=== PATIENT | male | born 1940 ===

== ENCOUNTER → 2021-05-27 13:55 | Outpatient (BNVA) | payer OTHER, SELFPAY | PROVIDERS: PCP Internal Medicine; Visit Provider Psychiatry & Neurology Neurology | DX: G20 Parkinson's disease (principal); Z79.899 Other long term (current) drug therapy | CPT/HCPCS: 99212 ==

== ENCOUNTER → 2021-07-10 14:24 | Outpatient (BNVA) | payer OTHER, SELFPAY | PROVIDERS: PCP Internal Medicine; Visit Provider Psychiatry & Neurology Neurology | DX: G20 Parkinson's disease (principal) | CPT/HCPCS: 99212 ==

== ENCOUNTER → 2021-08-15 14:56 | Outpatient (BNVA) | payer OTHER, SELFPAY | PROVIDERS: PCP Internal Medicine; Visit Provider Psychiatry & Neurology Neurology | DX: G20 Parkinson's disease (principal) | CPT/HCPCS: 99212 ==

== ENCOUNTER → 2022-04-28 13:48 | Outpatient (BNVA) | payer OTHER, SELFPAY | PROVIDERS: PCP Internal Medicine; Visit Provider Psychiatry & Neurology Neurology | DX: G20 Parkinson's disease (principal) ==

== ENCOUNTER → 2022-05-13 13:05 | Outpatient (BNVA) | payer OTHER, SELFPAY | PROVIDERS: PCP Internal Medicine; Visit Provider Psychiatry & Neurology Neurology | DX: G20 Parkinson's disease (principal) | CPT/HCPCS: 99212 ==

== ENCOUNTER → 2022-06-26 13:27 | Outpatient (BNVA) | payer OTHER, SELFPAY | PROVIDERS: PCP Internal Medicine; Visit Provider Psychiatry & Neurology Neurology | DX: G20 Parkinson's disease (principal) | CPT/HCPCS: 99212 ==

== ENCOUNTER 2023-09-07 14:35 | Outpatient (AMB) | payer OTHER, SELFPAY ==
--- NOTE | 2023-09-07 14:37 | A.OFFVIS_ITS ---
Vital Signs 09/07/23 14:39 Height 5 ft 7 in Weight 174 lb 5 oz BMI 27.3 BP 112/68 Blood Pressure Location Rt brachial Position Sitting Respiration 16 Pulse 88 Pulse Source Pulse Oximeter Pulse Oximetry (%) 98 Oxygen Delivery Method Room Air Intake Visit Reasons: Follow up/ Conf w/address Intake Note: Pt presents to the office for a 3 month follow up for Parkinson's. Early Years Teacher Required: Yes Early Years Teacher Name: Celeste Uribe CMA Allergies atorvastatin [From Lipitor] Allergy (Verified 09/07/23 14:39) Abdominal Pain Medication List - Last Reconciled 09/07/23 by Alissa Downs MD albuterol sulfate 90 mcg/actuation puffs inhalation Q4H allopurinol 100 mg PO DAILY azelastine intranasal BID carbidopa-levodopa 25-100 mg ER 1 tab PO TID cephalexin 500 mg PO TID chlorthalidone 25 mg PO DAILY cholecalciferol (vitamin D3) 50 mcg PO DAILY hydroxyzine HCl 10 mg PO TID PRN mirtazapine 15 mg PO BEDTIME omeprazole 20 mg PO DAILY 30 days pantoprazole (Protonix) 20 mg PO DAILY polyethylene glycol 3350 (Gavilax) grams PO pravastatin 40 mg PO DAILY ropinirole 0.5 mg PO TID tamsulosin 0.4 mg PO BEDTIME HPI Comments Details: 83-year-old male comes for follow-up of Parkinson's disease after 18 mths. He reports worsening of his symptoms, increased tremors , gait difficulty , freezing episodes.He is on antibiotics for UTI. Currently he is on requip 0.5mg tid and , sinemet 25/100 tid.He did not notice any improvement. He reports that medications do not help with his symptoms and he still has lot of tremors and difficulty walking . He has dizziness but no falls. He denies any hallucinations or REM behaviors. He denies any diplopia or vertigo. He always hears a chronic gastric problem and he follows up with the GI. [facility] Medical History (Updated 09/07/23 @ 15:04 by Alissa Downs MD) Parkinson's disease with fluctuating manifestations Cataract Parkinson's disease Irritable bowel syndrome Chronic kidney disease Diverticulitis Back pain Arthritis COPD (chronic obstructive pulmonary disease) Hyperlipidemia HTN (hypertension) BPH (benign prostatic hyperplasia) Surgical History Hx of parathyroidectomy History of back surgery Hx of neck surgery History of carpal tunnel release Hx of appendectomy Family History Father Stroke Mother HTN (hypertension) Diabetes Social History Alcohol intake: never Patient Tobacco Use Status: Never used Tobacco Physical Exam Vital Signs: Last Vital Signs Pulse 88 09/07/23 14:39 Resp 16 09/07/23 14:39 BP 112/68 09/07/23 14:39 Pulse Ox 98 09/07/23 14:39 Oxygen Delivery Method Room Air 09/07/23 14:39 BMI result Body Mass Index 27.3 Const General: cooperative and healthy appearing Orientation/consciousness: patient oriented x3 HEENT Head: Yes normal to inspection Neck Other: mild antecollis and restricted range of motion Neuro Other: Moderate decreased blink and facial expression slow tongue movements Voice- hypophonia and dysprosody Right UE moderate amplitude rest tremors Fine Finger movements - moderate decreased manish R>L Alternating hand movements - decreased manish R>L Hand movements - decreased manish Foot taps- decreased manish Manish cog wheel rigidity gait - stooped, slowness and decreased arm swing R>L General: patient oriented x3 Motor exam (neuro): 5/5 motor strength present throughout and Normal motor muscle tone present throughout Coordination: [id number] test normal Assessment & Plan Assessment & Plan (1) Parkinson's disease with fluctuating manifestations: Code(s): G20.A2 - Parkinson's disease without dyskinesia, with fluctuations Category: Medical Plan Increase ropinirole 0.5 mg qid and sinemet Cr 25/100 qid Increase fluids Increase exercise. Medications: Changed From carbidopa-levodopa 25-100 mg ER 1 tab PO TID 90 tabs 6RF To carbidopa-levodopa 25-100 mg ER 1 tab PO QID 120 tabs 6RF Refilled ropinirole 0.5 mg PO TID 120 tabs 6RF Discontinued rasagiline Discontinued Reason: Patient no longer taking 1 mg PO DAILY 90 tabs 2RF Coding Level of Care Code Est Pt Level 4 (86099) Complex EM visit Add On G2211 Diagnoses Parkinson's disease with fluctuating manifestations G20.A2
[2023-09-07 14:39] VITALS: BP 112/68; PULSE 88; RESP 16; O2SAT 98; BMI 27.3
== END 2023-09-07 15:13 | disposition home or self-care (01) ==
PROVIDERS: PCP Internal Medicine; Visit Provider Psychiatry & Neurology Neurology
DX: G20.A2 Parkinson's disease without dyskinesia, with fluctuations (principal)
CPT/HCPCS: 99214; G2211

== ENCOUNTER → 2023-09-07 14:35 | Outpatient (BNVA) | payer OTHER, SELFPAY | PROVIDERS: PCP Internal Medicine; Visit Provider Psychiatry & Neurology Neurology | DX: G20.A2 Parkinson's disease without dyskinesia, with fluctuations (principal) | CPT/HCPCS: 99212 ==

== ENCOUNTER 2024-07-14 13:50 | Outpatient (AMB) | payer OTHER, SELFPAY ==
[2024-07-14 13:48] VITALS: BP 112/64; PULSE 96; O2SAT 97; BMI 27.0
--- NOTE | 2024-07-14 13:48 | A.OFFVIS_ITS ---
Vital Signs 07/14/24 13:48 Height 5 ft 7 in Weight 172 lb 6 oz BMI 27.0 BP 112/64 Blood Pressure Location Lt brachial Position Sitting Pulse 96 Pulse Source Pulse Oximeter Pulse Oximetry (%) 97 Oxygen Delivery Method Room Air Intake Visit Reasons: Follow up-Conf Intake Note: Patient following up med adjustment ropinirole Accompanied by: neighbor Allergies atorvastatin [From Lipitor] Allergy (Verified 07/14/24 13:48) Abdominal Pain Medication List - Last Reconciled 07/14/24 by Alissa Downs MD albuterol sulfate 90 mcg/actuation puffs inhalation Q4H allopurinol 100 mg PO DAILY azelastine intranasal BID carbidopa-levodopa 25-100 mg ER 1 tab PO QID cephalexin 500 mg PO TID chlorthalidone 25 mg PO DAILY cholecalciferol (vitamin D3) 50 mcg PO DAILY hydroxyzine HCl 10 mg PO TID PRN mirtazapine 15 mg PO BEDTIME omeprazole 20 mg PO DAILY 30 days pantoprazole (Protonix) 20 mg PO DAILY polyethylene glycol 3350 (Gavilax) grams PO pravastatin 40 mg PO DAILY ropinirole 0.5 mg PO QID tamsulosin 0.4 mg PO BEDTIME HPI Comments Details: 84-year-old male comes for follow-up of Parkinson's disease after 1 year . He reports worsening of his symptoms, increased tremors , gait difficulty , freezing episodes. Currently he is on requip 0.5mg tid and , sinemet 25/100 tid.He did not increase to 4 times a day as suggested during his last visit He reports that medications do not help with his symptoms and he still has lot of tremors and difficulty walking . He has dizziness but no falls. He denies any hallucinations or REM behaviors. He denies any diplopia or vertigo. . [facility] Medical History Parkinson's disease with fluctuating manifestations Cataract Parkinson's disease Irritable bowel syndrome Chronic kidney disease Diverticulitis Back pain Arthritis COPD (chronic obstructive pulmonary disease) Hyperlipidemia HTN (hypertension) BPH (benign prostatic hyperplasia) Surgical History Hx of parathyroidectomy History of back surgery Hx of neck surgery History of carpal tunnel release Hx of appendectomy Family History Father Stroke Mother HTN (hypertension) Diabetes Social History Alcohol intake: never Patient Tobacco Use Status: Never used Tobacco Physical Exam Vital Signs: Last Vital Signs Pulse 96 07/14/24 13:48 BP 112/64 07/14/24 13:48 Pulse Ox 97 07/14/24 13:48 Oxygen Delivery Method Room Air 07/14/24 13:48 BMI result Body Mass Index 27.0 Const General: cooperative and healthy appearing Orientation/consciousness: patient oriented x3 HEENT Head: Yes normal to inspection Neck Other: mild antecollis and restricted range of motion Neuro Other: Moderate decreased blink and facial expression slow tongue movements Voice- hypophonia and dysprosody Right UE moderate amplitude rest tremors Fine Finger movements - moderate decreased manish R>L Alternating hand movements - decreased manish R>L Hand movements - decreased manish Foot taps- decreased manish Manish cog wheel rigidity gait - stooped, slowness and decreased arm swing R>L, freezing episodes General: patient oriented x3 Motor exam (neuro): 5/5 motor strength present throughout Coordination: [id number] test normal Assessment & Plan Assessment & Plan (1) Parkinson's disease with fluctuating manifestations: Code(s): G20.A2 - Parkinson's disease without dyskinesia, with fluctuations Category: Medical Qualifiers: Dyskinesia presence: without dyskinesia Qualified Code(s): G20.A2 - Parkinson's disease without dyskinesia, with fluctuations Plan Increase ropinirole 0.5 mg qid and sinemet Cr 25/100 qid Increase fluids PT for gait training and balance Increase exercise. Orders: Orders PT Evaluation and Treatment Today G20.A2 - Parkinson's disease without dyskinesia, with fluctuations Medications: New 2 carbidopa-levodopa 25-100 mg ER 1 tab PO QID 120 tabs 6RF Changed From ropinirole 0.5 mg PO TID 120 tabs 6RF To ropinirole 0.5 mg PO QID 120 tabs 6RF Discontinued carbidopa-levodopa 25-100 mg ER Discontinued Reason: Doctor's Order 1 tab PO QID 120 tabs 6RF Coding Level of Care Code Est Pt Level 4 (69978) Complex EM visit Add On G2211 Diagnoses Parkinson's disease without dyskinesia, with fluctuating manifestations G20.A2 Dyskinesia presence: without dyskinesia
--- OUTSIDE RECORDS SUMMARY | 2024-07-14 16:55 | XMS_ITS | Data Portability ---
Author Organization [employer], Id in - [facility] Address [address] [place] [address] Care Team Providers Care Stitch Separator Name Role Phone HIM CCA OTHER RAFAEL BRIGHT Primary Care Provider Assessment Encounter Date Assessment Date Assessment LastModified by Organization Details LastModified Time 02/02/2023 02/02/2023 Mr. Kurt Oreilly is an 82yoM w/ a PmHx of gout, COPD who is seen today for leg pain and chest discomfort. Mr. Oreilly reports that for the past few days he has had new bilateral lower extremity leg swelling and right knee pain. He notes that this is in addition to new intermittent chest pain that he has had over the past two weeks. He reports that the pain is pressure like and provoked by exertion. He does not have pain at rest or currently during today's visit. He denies new shortness of breath, nausea/vomiting, or trauma. He has an upcoming cardiology appointment on Thursday and a scheduled stress test. VSS. Skylights Assembler on site reports b/l mild lower extremity pitting edema, No knee erythema or asymmetry. POC EKG without ST changes. Labs with a potassium of 4.7 but otherwise unrevealing. Given b/l edema will treat as mild CHF exacerbation. Given 20mg IV lasix. No significant asymmetry to suggest acute gout exacerbation but encouraged to continue utilizing OTC medications. His chest pain is concerning for angina, but no pain currently and no EKG changes with upcoming cardiology appointment this week. He should present to the ED if chest pain worsens or does not improve immediately with rest. Primary team, Mr. Oreilly would benefit from follow up in the next week or so to make sure his leg pain has not worsened. [email or web address] Not available 02/02/2023 10:55:44 07/15/2023 07/15/2023 As noted, we were called to see this patient regarding concerns of cough, body aches 83 yo M COPD/asthma, CKD, elevated cholesterol, gout, lives with his , having 2 weeks of sxs including cough, body aches, lethargy, diminished appetite, pressure behind eyes, nose, nasal congestion, chills. Taking tylenol only. Last dose last night. No n/v/d. No abd pain. No known sick contacts. No use of oxygen. Evaluation in the field was performed by my account manager colleague, as noted above, I provided real-time direction and supervision for this visit. The medic evaluation revealed in nad mmm; erythematous op neck supple tenderness over maxillary sinuses bilaterally lungs clear rrr abd soft, nd, nt Impression: Cough URI Fever Possible source is a sinusitis. May be bacterial given duration of sxs and sinus tenderness and fever Lower clinical suspicion for PNA Plan: Augmentin bid x 7d Flonase nasal spray Salt water nasal spray Tessalon perles Tylenol prn fever and aches Red flag s/s reviewed with patient Primary care, consider CXR if cough worsens or not improving with above treatments Disposition: We discussed the diagnostic uncertainty of home visits and the risk associated with this. In this case, the patient and I felt this to be an acceptable and reasonable amount of risk given the benefit of avoiding an ED visit. We discussed the need to seek care urgently/emergen tly in the setting of any new or worsening serious symptoms, particularly breathing issues, worsening symptoms such as cough, ongoing fever despite use of tylenol, other concerns. [email or web address] Not available 07/15/2023 12:03:08 01/12/2024 01/12/2024 I have reviewed and agree with the assessment and plan as documented by the account manager. I provided real time medical direction for this encounter and was immediately available to provide additional phone based assistance as needed. History as noted by account manager. Pt with history of HTN, CKD, dementia, and gout reporting 2 weeks of diffuse myalgias, as well as non productive cough and rhinorrhea. No fevers, chills, chest or abdominal pain. No vomiting or diarrhea. No joint pain or swelling. Pt reports chronic edema of legs but notes that this is actually improved recently. On exam, pt appears uncomfortable but not in distress. Vitals normal. Lungs clear, abdomen soft, non tender. No joint swelling or redness. No facial swelling or redness. 1+ pitting symmetric edema of BLEs. POC BMP is unremarkable with Cr 1.2 (was 1.4 in July 2023) and normal H/H. Lactate normal and AG 12. Rapid covid and flu both negative. 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 No fevers. On exam, he appears mildly uncomfortable but not in distress. Vitals normal. Lung and abdominal exam normal. No joint inflammation noted. 1+ symmetric peripheral edema noted that the pt reports is recently improved. POC covid and flu negative. POC labs also reassuring Etiology of pt's symptoms likely related to recent viral URI but seems odd for him to have had symptoms x2 weeks. His vitals, exam and labs are reassuring. Pt medicated with toradol 15mg IM. He and family told that he needs to try taking his tylenol tid prn symptoms and that he needs to call and make an appointment with his primary care team for further evaluation, including CBC to assess WBC and CK. To primary care team: Please call patient and family in next 1-2 days to check on his symptoms and to arrange for a close follow up appointment for further evaluation. Pt and family instructed to seek medical attention right away with any worsening or new symptoms, which are reviewed with them. [email or web address] Not available 01/12/2024 12:19:37 Plan of Treatment Reminders Order Date Submit Date Provider Last Modified By Organization Details Last Modified Time Details Appointments None recorded. Lab rapid SARS CoV 2 Ag, QL IA, respiratory specimen 2023 [email or web address] [facility], [address] [place] [address], [id number] 4 11:37:24 rapid flu (A+B) 2023 [email or web address] [facility], [address] [place] [address], [id number] 4 11:37:24 BMP, serum or plasma 2023 btils [facility], [address] [place] [address], [id number] 4 11:48:10 hemoglobin + hematocrit, blood 2023 btils [facility], [address] [place] [address], [id number] 4 11:48:10 hemoglobin + hematocrit, blood 2023 [email or web address] [facility], [address] [place] [address], [id number] 4 11:55:10 BMP, serum or plasma 2023 [email or web address] [facility], [address] [place] [address], [id number] 4 11:55:53 rapid SARS CoV 2 Ag, QL IA, respiratory specimen 2023 [email or web address] [facility], [address] [place] [address], [id number] 11:36:49 rapid flu (A+B) 2023 [email or web address] [facility], [address] [place] [address], [id number] 11:37:03 rapid strep group A, throat 2023 [email or web address] [facility], [address] [place] [address], [id number] 11:36:56 Referral None recorded. Procedures None recorded. Surgeries None recorded. Imaging None recorded. Medication Orders ketorolac 30 mg/mL injection solution 2023 [email or web address] [facility]acy #[id number], [address] [place], [address], 11:48:10 Lasix 20 mg tablet 2023 [email or web address] [facility]armacy #[id number], [address] [place], [address], 13:00:33 Augmentin 875 mg-125 mg tablet 2023 VÍCTOR [facility]/Pharmacy #0488, [address] [place], [address], 12:02:34 Tessalon Perles 100 mg capsule 2023 024 [facility]/Pharmacy #[id number], [address] [facility], [place], [address], 4 12:02:34 furosemide 10 mg/mL injection solution 2022 023 [email or web address] [facility]/Pharmacy #0488, [address] [place], [address], 3 10:55:40 Paxlovid 300 mg (150 mg x 2)-100 mg tablets in a dose pack 2022 023 [id number] [address] [place], [address], 3 13:36:17 Patient TargetsNo targets recorded. Patient InstructionsNo instructions recorded. Reason for Referral None Reported. Results Created Date Observation Date Name Description Value Unit Range Abnormal Flag Note LastModifiedBy Organization Detail LastModifiedTime 07/15/19 24 07/15/2023 BMP, serum or plasm a BUN 27 Not Available [facility] [address], [address] 07/15/2023 11:33:56 07/15/19 24 07/15/2023 BMP, serum or plasm a Ca 1.22 Not Available [facility] [address], [address] 07/15/2023 11:33:56 07/15/19 24 07/15/2023 BMP, serum or plasm a CI- 105 Not Available [facility] [address], [address] 07/15/2023 11:33:56 07/15/19 24 07/15/2023 BMP, serum or plasm a CRE 1.6 Not Available [facility] [address], [address] 07/15/2023 11:33:56 07/15/19 24 07/15/2023 BMP, serum or plasm a GLU 135 Not Available [facility] [address], [address] 07/15/2023 11:33:56 07/15/19 24 07/15/2023 BMP, serum or plasm a K+ 140 Not Available [facility] [address], [address] [place] [address] 07/15/2023 11:33:56 07/15/19 24 07/15/2023 BMP, serum or plasm a Na+ 3.9 Not Available [facility] [address], [address] [place] [address] 07/15/2023 11:33:56 07/15/19 24 07/15/2023 BMP, serum or plasm a tCO2 23 Not Available [facility] [address], [address] [place] [address] 07/15/2023 11:33:56 07/15/19 24 07/15/2023 hemog lobin + hemat ocrit , blood Hemoglobin 15 Not Available [facility] [address] [place] [address], [address] [place] [address] 07/15/2023 11:33:16 07/15/19 24 07/15/2023 hemog lobin + hemat ocrit , blood Hematocrit 46 Not Available [facility] [address] [place] [address], [address] [place] [address] 07/15/2023 11:33:16 07/15/19 24 07/15/2023 rapid flu (A+B) Flu negati ve Not Available [facility] [address] [place] [address], [address] [place] [address] 07/15/2023 11:36:00 07/15/19 24 07/15/2023 rapid strep group A, throa t Strep negati ve Not Available [facility] [address] [place] [address], [address] [place] [address] 07/15/2023 11:36:29 07/15/19 24 07/15/2023 rapid SARS CoV 2 Ag, QL IA, respi rator y speci men rapid SARS CoV 2 Ag, QL IA, respiratory specimen negati ve Not Available [facility] [address] [place] [address], [address] [place] [address] 07/15/2023 11:34:12 01/12/20 24 01/12/2024 rapid flu (A+B) Flu negati ve Not Available [facility] [address] [place] [address], [address] [place] [address] 01/12/2024 11:36:53 01/12/20 24 01/12/2024 rapid SARS CoV 2 Ag, QL IA, respi rator y speci men rapid SARS CoV 2 Ag, QL IA, respiratory specimen negati ve Not Available [facility] ed [address] [place] [address], [place], [address] 01/12/2024 11:36:49 Result Notes None recorded. Medical Equipment None Reported. Allergies Allergen ID Allergen Name Allergen Category Reaction Reaction Severity Criticality Documentation Date Start Date Code Code System Note Provider Name and Address Organization Details Recorded Time 2408 Lipitor medicatio n Not available Not available Not available 08/21/2022 64445 5 RxNorm Rachele Dahl MD [address] [place] [address],[address], [place], [address], [employer] 3 12:22:02 2409 acetyl sulfisoxa zole medicatio n Not available Not available Not available 08/21/2022 29164 RxNomattie Dahl MD [address] [place] [address],[address], [place], [address], [employer] 3 12:22:09 Medications Name Sig Start Date Stop Date Status Note LastModified by Organization Details LastModified Time Augmentin 875 mg-125 mg tablet Take 1 tablet every 12 hours by oral route for 7 days. 2023 active Not Available Not Available Not Avai lable ketorolac 30 mg/mL (1 mL) injection solution Inject 1 mL every 6 hours by intramuscular route. 2022 active Not Available Not Available Not Avai lable Tessalon Perles 100 mg capsule Take 1 capsule 3 times a day by oral route as needed, for cough. 2023 active Not Available Not Available Not Avai lable Lasix 20 mg tablet Take 20 mg every day by oral route for 3 days. 2023 active Not Available Not Available Not Avai lable aspirin 81 mg chewable tablet 324 mg 2022 active Not Available Not Available Not Avai lable ketorolac 30 mg/mL injection solution 15 mg IM x 1 for pain 2023 active Not Available Not Available Not Avai lable potassium chloride ER 20 mEq tablet,ext ended release Take 1 tablet every day by oral route for 3 days. 2022 active Not Available Not Available Not Avai lable Paxlovid 300 mg (150 mg x 2)-100 mg tablets in a dose pack Take 1 dose pk by oral route. 2022 active Not Available Not Available Not [place] [facility] Vitals Date Recorded Oxygen saturation Oxygen saturation in Arterial blood by Pulse oximetry Body temperature Respiratory rate Heart rate Systolic blood pressure Diastolic blood pressure Provider Name and Address Organization Details Last Updated DateTime 3 98 % 98 % 99.1 [degF] 16 /min 88 /min 110 mm[Hg] 68 mm[Hg] Not Available [email or web address] 3 13:28:05 Date Recorded Body height Body temperature Oxygen saturation Oxygen saturation in Arterial blood by Pulse oximetry Body weight Respiratory rate Heart rate Systolic blood pressure Diastolic blood pressure Provider Name and Address Organization Details Last Updated DateTime 3 170.18 cm 98.4 [degF] 97 % 97 % 22514.6 4 g 18 /min 90 /min 116 mm[Hg] 71 mm[Hg] Not Available [employer] 3 10:19:19 Date Recorded Respiratory rate Body temperature Heart rate Oxygen saturation Oxygen saturation in Arterial blood by Pulse oximetry Systolic blood pressure Diastolic blood pressure Provider Name and Address Organization Details Last Updated DateTime 4 18 /min 100.1 [degF] 86 /min 98 % 98 % 120 mm[Hg] 76 mm[Hg] Not Available [employer] 4 11:28:41 Date Recorded Body temperature Oxygen saturation Oxygen saturation in Arterial blood by Pulse oximetry Body weight Heart rate Respiratory rate Systolic blood pressure Diastolic blood pressure Provider Name and Address Organization Details Last Updated DateTime 4 98.4 [degF] 95 % 95 % 03522.6 g 86 /min 18 /min 133 mm[Hg] 72 mm[Hg] Not Available [employer] 4 12:40:37 Date Recorded Body weight Body height Body temperature Oxygen saturation Oxygen saturation in Arterial blood by Pulse oximetry Respiratory rate Heart rate Systolic blood pressure Diastolic blood pressure Provider Name and Address Organization Details Last Updated DateTime 4 10599.6 4 g 170.18 cm 98 [degF] 97 % 97 % 16 /min 90 /min 109 mm[Hg] 71 mm[Hg] Not Available [employer] 11:27:23 Social History None recorded. Functional Status None recorded. Mental Status None recorded. Family History Nothing Reported. Medical History No medical history recorded. Past Encounters Encounter ID Performer Location Encounter Start Date Encounter Closed Date Diagnosis/Indication Diagnosis SNOMED-CT Code Diagnosis ICD10 Code Diagnosis Note [id number] Nathan Boss MD Main - [address] [address] 12/05/2021 15:42:21 12/23/2021 12:55:02 Chest pain 97305411 R07.9 EKG with no acute ST-T wave changes Fibromyalgia 773610529 M 79.7 Vitals stable. Declining repeat strep/covi d at this time. [id number] Rachele Dahl MD Main - [address] [phone] 08/21/2022 12:21:32 08/25/2022 18:27:30 Chronic pain syndrome 498349648 G89.4 fibromyalg ia- with peripheral edema -advised ekg nad but cannot fully eval for CAD at home. Wanted something for pain- may take apap- since renal function ok can give 1 dose ketorolac for pain and will give low dose diuretic to try and alleviate edema and some LE discomfort - no resp distress- nothing to suggest CHF clinically . Advised can always call for repeat visit if not improving but we only have ketorolac and APAP at our disposal. Advised would not recommend any repeat doses of ketorolac- could create renal issues trang while on diuretic and risk of GI bleeding w/ repeat doses in senior patient- advised need to discuss pain management with pcp tomorrow. Advised further if develops CP/ SOB/ turning blue/ severe AMS or uncontroll ed pain should go to the ER Edema of l ower extremity [id number] R60.0 [id number] Kellen Wheat MD Main - [address] [address] 09/12/2022 11:21:10 09/12/2022 11:30:55 Fall W19.XXXA 82 year old male being evaluated for a fall from his bed two days ago. Patient reports ongoing pain in his shoulder since the fall, which is the same shoulder he has had a surgery on in the past. He is still able to use the arm, and has not taken any medication for it. Exam is notable for normal vital signs, no swelling, bruising or deformity. Presentati on suggestive of shoulder contusion after a mechanical fall, toradol IM given. [id number] Alana Manzano MD Main - [address] [address] 09/28/2022 14:36:42 09/29/2022 10:49:43 Edema of lower extremity 907237452 R60.0 [id number] [facility] [address] [place], [place] [phone] 10/29/2022 16:48:44 10/30/2022 12:12:37 Chest pain 17900905 R07.9 As above. Call to the [facility] ER-EMS contacted by medic for transport [id number] Davis Chadwick MD [facility] - [place] [phone] 12/05/2022 13:28:03 12/06/2022 16:03:41 COVID-19 [id number] U07.1 This 82-year-ol d male has had URI symptoms for several days. Today his COVID-19 screen was positive. I ordered Paxlovid. He will follow-up with his PCP. The patient agreed with this plan. Acute COVID-19 [id number] 8 U07.1 [id number] Alana Manzano MD [facility] - [address] [address] 02/02/2023 10:19:15 02/03/2023 11:43:29 Edema of lower extremity 010175920 R60.0 [id number] LANDON [facility]ARAYANAN [facility] [address] [place] [phone] 07/15/2023 11:28:39 07/15/2023 15:17:36 Fatigue 39129093 R53.83 Cough 62473292 R05.9 Acute sinusitis 15208041 J01.90 [id number] Maude Gayle MD [facility] - [address] [phone] 10/23/2023 12:40:29 10/23/2023 16:23:22 Bilateral lower leg edema 997932247 R60.0 As noted, we were called to see this patient regarding concerns of b/l LE edema. Evaluation in the field was performed by my account manager colleague, as noted above, I provided real-time direction and supervisio n for this visit. The evaluation revealed 83 y/o man, accompanie d by his , with cervical radiculopa thy, dementia, CKD who has had 3 days of b/l leg pain and swelling. He has +1 edema, but says this is not his baseline. He normally has difficulty walking and uses a cane and walker. He has difficulty urinating at baseline, denies urinary or fecal incontinen ce. He has no chest pain, dyspnea, orthopnea. Per account manager he is on the couch and has +3 strength in b/l thighs. He is still able to walk with assistance per .His last Cr visible to me was 1.4 in 08/2023, stable from prior.He has follow up with his PCP on Thursday. Impression :b/l LE edema with pain and decreased mobility. Plan:We discussed options of either going to the ER given his difficulty ambulating , or staying home with a short course of lasix and follow up with PCP. was adamant he not go to the ER, and definitely not stay overnight. Given that he does not have red flags for acute cord compressio n and he has close PCP follow up we will plan for 20mg lasix daily x 3 days, tylenol up to 3g/day for pain. He may require assessment for home PT/VNA. Dispositio n: We discussed the diagnostic uncertaint y of home visits and the risk associated with this. In this case, the patient and I felt this to be an acceptable and reasonable amount of risk given the benefit of avoiding an ED visit. We discussed the need to seek care urgently/e mergently in the setting of any new or worsening serious symptoms, particular ly changes to consciousn ess, chest pain, dyspnea, changes to mobility . [id number] Jhonny Maynard MD [facility] [address] [place] [phone] 01/12/2024 11:27:13 01/12/2024 18:42:37 Viral upper respiratory tract infection 528040629 J06.9 Health Concerns Section Related Observation LastModified by Organization Detai ls LastModified Time None Recorded Concern Status LastModified by Organization Details LastModified Time None Recorded Advance Directives Directive None Recorded Payers Encounter Date Sequence Insurance Name Policy Number Policy Keith Covered Member ID Keith Member ID Guarantor Name 12/05/2022 1 [employer] - DOS ON OR AFTER 2022 - DUAL ELIGIBLE - NURSING HOME OPTIONS AND ONE CARE (MEDICARE REPLACEMENT/ADV ANTAGE - HMO) Kurt Oreilly [id number] Kurt Oreilly 02/02/2023 1 [employer] - DOS ON OR AFTER 2022 - DUAL ELIGIBLE - NURSING HOME OPTIONS AND ONE CARE (MEDICARE REPLACEMENT/ADV ANTAGE - HMO) Kurt Oreilly [id number] Kurt Oreilly 07/15/2023 1 [employer] - DOS ON OR AFTER 2022 - DUAL ELIGIBLE - NURSING HOME OPTIONS AND ONE CARE (MEDICARE REPLACEMENT/ADV ANTAGE - HMO) Kurt Oreilly [id number] Kurt Oreilly 10/23/2023 1 [employer] - DOS ON OR AFTER 2022 - DUAL ELIGIBLE - NURSING HOME OPTIONS AND ONE CARE (MEDICARE REPLACEMENT/ADV ANTAGE - HMO) Kurt Oreilly [id number] Kurt Oreilly 01/12/2024 1 [employer] - DOS ON OR AFTER 2022 - DUAL ELIGIBLE - NURSING HOME OPTIONS AND ONE CARE (MEDICARE REPLACEMENT/ADV ANTAGE - HMO) Kurt Oreilly [id number] Kurt Oreilly Notes Date Note Type Note Provider Name and Address Organization Details Recorded Time 12/05/2022 text/html [facility] Nursing Assessment: Reason For Request: Spouse reporting that pt has a semi productive cough, nasal drip, body aches, back pain>denies fever but has had chills>some SOB no chest pain. Chief Complaints: Cough, Fever/Chills, URI, Shortness of Breath/Dyspnea PMH: COPD/Asthma Comments: CG reports having cold s/s for 3 days - Chills with body aches -Cough/congestion - Productive cough - SOB - Denies CP - Denies N/V - Decreased PO intake. Monica BURNS .................... .................... .................... .................... .................... .................... .................... . Skylights Assembler Note From Juanjose Wyatt: Dispatched to the call address for the male with cold/flu like symptoms. Pt states he has had a cough, runny nose, headache, body aches and general unwell feeling for 3 days now. Pt states he is able to drink water and denies n/v/d, SoB or chest pain. He has taken OTC cough medicine as well as Tylenol with mild effect. Pt denies fevers. Pt was found sitting in living room chair, CAOx4, airway open and patent, breathing non labored, able to speak in full sentences, -JVD, -HEENT, skin PWD with good turgor, abd soft non tender/distended, lung sounds clear and equal bilaterally, +CMSx4, temp 99.1, flu rapid negative, Covid rapid positive. [facility] consulted. Script called into preferred pharmacy after C was given list of Pts medications. Red flags discussed. ALL times are approx. .................... .................... .................... .................... .................... .................... .................... . Disposition: Fulfilled Davis Chadwick MD [address] [facility],[address], [place], [phone], [place] 12/05/2022 14:08:25 02/02/2023 text/html [facility] Nursing Assessment: Reason For Request: Spouse reporting pt's legs are swollen>pain in his left knee>pt feels as if his chest is somewhat tight>spouse mention pt has allergies and using an ointment that is not helping (tacrolimus) Chief Complaints: Edema PMH: COPD/Asthma, Other Comments: Bilateral lower extremity edema R>L. c/o new left knee pain last week. No recent injuries. Intermittent tightness in chest started 2 weeks ago. No shortness of breath noted by spouse. Patient has history of COPD. No reports of upper respiratory symptoms associated with tightness. .................... .................... .................... .................... .................... .................... .................... . Skylights Assembler Note From Bladimir Linares: Mr. Oreilly is an 82 YOM with hx of CHF, HLD, HTN, GERD, gout, Alzheimer? s . Pt reports intermittent CP with exertion for two months. Pt sts CP usually lasts 15-20 minutes before resolving on its own. 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 Pt also reports increased bilateral DUARTE with pain for approx 2 weeks. Pt currently denies CP, SOB, GUTIERREZ, f/n/v/d. Pt is alert, NAD. VSS. Afebrile. Neuro exam normal. Lungs CTA. Benign ABD exam. Bilateral + 1 lower extremity pitting edema and pain on palpation. Unremarkable ECG. Unremarkable POC labs. Pt? s sx seem c/w stable angina and a mild CHF exacerbation. [facility] contacted and pt treated with furosemide 20 mg IVP. Pt instructed to keep cardiology appointment this Thursday and to seek emergent medical care for new or worsening sx, which are reviewed with him. .................... .................... .................... .................... .................... .................... .................... . Disposition: Kobi Manzano MD [address] [facility],[address], [place], [address], [employer] 02/02/2023 17:17:58 07/15/2023 text/html CRC Nurse Triage Notes (Wilfrido Reis): Chief Complaints: URI, Weakness/Lethargy PMH: COPD/Asthma Allergies: Unknown Comments: Head Gauge Unit Operator verified the member's name//address and phone number. Member's reports mbr with cough, body aches, and generalized weakness for the last couple weeks. Mbr also c/o throat and sinus pain. Education provided on the response time and the member was advised to monitor reported s/s and seek emergency treatment if needed -Dayday Reis RN .................... .................... .................... .................... .................... .................... .................... . Skylights Assembler Note From Juanjose Wyatt: Dispatched to the call address for the elderly male not feeling well. Pt states he is going on two weeks now of body aches, lethargy, diminished appetite, sore throat and a dry cough. Pt states he has taken Tylenol with mild effect. He has not talked to his PCP about this illness. He denies n/v/d, CP or difficulty breathing at this time. Pt has been able to maintain PO hydration and has had no UTI s/s. Pt was found sitting in living room chair, CAOx4, airway open and patent, breathing non labored, able to speak in full sentences, -JVD, +sinus pressure/tenderness, mucous membranes moist and pink, lung sounds clear and equal bilaterally, abd soft non tender/distended, pupils PERRL, Rapid Covid/Flu/Strep (-), Chem 8. [facility] consulted. Pt prescribed abx and cough medication. Pt advised to crop picker OTC nasal saline. Red flags discussed. ALL times are approx. .................... .................... .................... .................... .................... .................... .................... . Disposition: Fulfilled LANDON NARAYANAN MD [address] [place] [address],[address], [place], [address], [employer] 07/15/2023 12:29:23 10/23/2023 text/html CRC Nurse Triage Notes (Kyle Cuevas): Chief Complaints: Pain, Edema PMH: COPD/Asthma Other Allergies: Lipitor, Gantrisin Pediatric and Indomethacin Comments: Allergies to medication: Lipitor, Gantrisin Pediatric and Indomethacin. Allergies reviewed in ECW with the CG who is unsure of samePMH:GERRI, Mild Dementia, Nephrolithiasis, Cervical disc disease, Impaired glucose tolerance, , insufficiency syndrome, Cervical radiculopathy, HTN, Diverticulosis of colon, Osteoarthritis, Mild cognitive disorder, Irritable bowel syndrome, unspecified type (resolved 09/19/2020),Chronic abdominal pain (hcewibvw60/23/2021) , Shuffling gait (resolved 09/19/2020), Tremor (resolved 09/19/2020), Umbilical hernia without obstruction and without gangrene (resolved 10/14/2020), goutCG reports the member in not currently taking blood thinnersWriter verified the member's name//address and phone number. Education provided on the response time and the member was advised to monitor reported s/s and seek emergency treatment if needed.CG reports the member has lower extremity swelling x1 week - Difficulty walking - Redness and warmth - Limited range of motion Denies open wounds - Denies fever Wellness check requested .................... .................... .................... .................... .................... .................... .................... . Skylights Assembler Note From Denisse Hernandez: Pt reports 2-3 days of bilateral leg pain. A&ox3, vs as noted, afebrile; endorses ? h eavy? feeling from hips to feet, reduced mobility. +1 pitting edema bilaterally with good pulses and sensation, pt unable to lift R leg, L leg able to lift <1in from ground while sitting. Unable to tolerate weight bearing due to pain; pt states typically uses a walker or cane but has been primarily in recliner due to pain. [facility] consulted, rx lasix sent to pharmacy which will get today and follow up with pcp Thursday regarding outpatient services and further pain management. Red flags reviewed. .................... .................... .................... .................... .................... .................... .................... . Disposition: Fulfilled Maude Gayle MD [address] [facility],[address], [place], [phone], [employer] 10/23/2023 13:01:49 01/12/2024 text/html This was a supervised home visit with account manager Bladimir Parmarsandeep. CRC Nurse Triage Notes (Viviana Mari): Reason For Request: Pain all over body Chief Complaints: Pain, ENT PMH: COPD/Asthma, Other Other Allergies: Lipitor Comments: Spouse calling in referral for member, she is reporting he has pain all over his body and face, hx of similar pain but worsening today. Took AM meds but unsure of names, PMH: prediabetic, kidney stones, PD's, stomach problems, Gout, arthritis. cervical radiculopathy, dementia, CKD Allergies to Lipitor and another med unsure of name , Spouse appears very concerned for member and poor historian and did not elaborate more on symptoms besides pain. Will place referral for pain eval. Skylights Assembler Organization Information for Bladimir Linares Legal Name: [facility] Transportation Address: [address] [place] [address], [place] [address], Manager Group: Chinedu Frank MD CLIA No.: [id number] Skylights Assembler POC Test Results from Bladimir Linares Rapid COVID antigen (11:24:39) COVID: - Rapid influenza antigen (11:24:40) Flu: - epoc (11:38:39) pH: 7.44 pH units pCO2: 32.0 mmHg pO2: 70.8 mmHg Na: 139 mmol/L K: 3.8 mmol/L iCa: 1.10 mmol/L Cl: 106 mmol/L TCO2: 21.6 mEq/L Hct: 46 % Hb: 15.8 g/dL Glu: 142 mg/dL Lac: 1.7 mmol/L Cr: 1.2 mg/dL BUN: 23 mg/dL A .................... .................... .................... .................... .................... .................... .................... . Skylights Assembler Note From Bladimir Linares: Pt reports two weeks of worsening body aches. Pt also c/o sinus congestion and mild dry cough. Pt denies CP, SOB, GUTIERREZ, dysuria, RIVERA, dizziness, f/n/v/d. Pt using tylenol 650 mg at night with no relief. Pt is alert, uncomfortable. VSS. Afebrile. Non focal neuro exam. Normal gait. Unremarkable ENT exam. No sinus tenderness. Lungs CTA. Benign ABD exam. No CVA tenderness. +2 BLE edema (improvement per pt). Rapid covid and flu negative. Unremarkable POC labs uploaded. Pt treated with ketorolac 15 mg IM, right deltoid. Pt instructed to f/u with PCP today for a more thorough work up, take tylenol tid and to present to the ED for new or worsening sx such as CP, SOB, high fever or AMS. .................... .................... .................... .................... .................... .................... .................... . Disposition: Fulfilled Jhonny Maynard MD [address] [facility],[address], [place], [address], [employer] 01/12/2024 12:19:51
--- OUTSIDE RECORDS SUMMARY | 2024-07-14 16:55 | XMS_ITS | Clinical Summary ---
Author Organization [facility] Address [address] [place] [address] Phone Care Team Providers Care Laundry Operator Finishing Name Role Phone Josiane Hooper MD Primary Care Provider [phone] Allergies No known active allergies Medical History Medical History Date Comments Gout Parkinson disease (CMS/[facility] V24, CMS/[facility] V28) Hypertension Social History Tobacco Use Types Packs/Day Years Used Date Smoking Tobacco: Never Smokeless Tobacco: Never Tobacco Cessation:Counseling Given: Not Answered Alcohol Use Standard Drinks/Week Comments Never 0 (1 standard drink = 0.6 oz pur e alcohol) Sex and Gender Information Value Date Recorded Sex Assigned at Not on file Legal Sex Male 11:37 PM EST Gender Identity Not on file Sexual Orientation Not on file Obstetrics History Last Filed Vital Signs Vital Sign Reading Time Taken Comments Blood Pressure 135/91 03/23/2024 8:17 PM EST Pulse 83 03/23/2024 5:06 PM EST Temperature 36.6 ??C (97.8 ??F) 03/23/2024 8:17 PM ES T Respiratory Rate 18 03/23/2024 8:17 PM EST Oxygen Saturation 95% 03/23/2024 8:17 PM EST Inhaled Oxygen Concentration - - Weight 78.9 kg (174 lb) 03/23/2024 5:06 PM EST Height 170.2 cm (5' 7 ) 03/23/2024 5:06 PM EST Body Mass Index 27.25 03/23/2024 5:06 PM EST Plan of Treatment Health Maintenance Due Date Last Done Comments Diabetes: Annual Foot Exam 02/27/1950 Diabetes: Annual Retina Eye Exam 02/27/1950 RSV Immunization Adult Patients (1 - 1-dose 75+ series) 02/27/2015 Zoster Vaccines (2 of 3) 02/27/2015 01/02/2015 Cholesterol Screening (Lipid Panel) 03/02/2022 Depression Screening 03/02/2022 Falls Risk Assessment 03/02/2022 Medicare Annual Wellness Visit 03/02/2022 Social Influencers of Health Screening 03/02/2022 COVID-19 Vaccine ( season) 2023 03/11/2021, 05/28/2020, 05/07/2020 Diabetes: Annual Urine Albumin-Creatinine Ratio (uACR) 03/23/2024 Diabetes: Blood Sugar Control Test (HGBA1C) 03/23/2024 08/27/2022 Diabetes: Annual GFR (Glomerular Filtration Rate) 03/23/2025 03/23/2024 Hypertension/CHF/CAD Annual BMP Blood Test 03/23/2025 03/23/2024 DTaP,Tdap,and Td Vaccines (3 - Td or Tdap) 04/16/2026 04/16/2016, 10/08/2007 Pneumococcal Vaccine: 50+ Years Completed 04/16/2016, 05/25/2014, 10/17/2005 Influenza Vaccine Completed 03/01/2024, , 03/11/2021, Additional history exists HIB Vaccines Aged Out No longer eligi ble based on patient's age to complete this topic HPV Vaccines Aged Out No longer eligi ble based on patient's age to complete this topic Hepatitis A Vaccines Aged Out No long er eligible based on patient's age to complete this topic Hepatitis B Vaccines Aged Out No long er eligible based on patient's age to complete this topic IPV Vaccines Aged Out No longer eligi ble based on patient's age to complete this topic MMR Vaccines Aged Out No longer eligi ble based on patient's age to complete this topic Meningococcal ACWY Vaccine Aged Out N o longer eligible based on patient's age to complete this topic Meningococcal B Vaccine Aged Out No l onger eligible based on patient's age to complete this topic RSV Immunization Patients Under 20 months Aged Out No longer eligible based on patient's age to complete this topic Varicella Vaccines Aged Out No longer eligible based on patient's age to complete this topic Procedures Procedure Name Priority Date/Time Associated Diagnosis Comments COMPREHENSIVE METABOLIC PANEL STAT 03/23/2024 5:15 PM EST from Last 3 Months or Most Recently Relevant to Health Maintenance Results * (ABNORMAL) Comprehensive metabolic panel (03/23/2024 5:15 PM EST) Sodium 139 133 - 145 mmol/L LAB CHEMISTRY METHOD 03/23/2024 6:05 PM [facility] Potassium 3.8 3.5 - 5.5 mmol/L LAB CHEMISTRY METHOD 03/23/2024 6:05 PM [facility] Chloride 106 96 - 110 mmol/L LAB CHEMISTRY METHOD 03/23/2024 6:05 PM [facility] CO2 28 21 - 32 mmol/L LAB CHEMISTRY METHOD 03/23/2024 6:05 PM [facility] Anion Gap 5 3 - 11 LAB CHEMISTRY METHOD 03/23/2024 6:05 PM [facility] Glucose 106(H) 70 - 100 mg/dL LAB CHEMISTRY METHOD 03/23/2024 6:05 PM [facility] BUN 22 5 - 25 mg/dL LAB CHEMISTRY METHOD 03/23/2024 6:05 PM [facility] Creatinine 1.73(H) 0.70 - 1.30 mg/dL LAB CHEMISTRY METHOD 03/23/2024 6:05 PM [facility] eGFR 38(L) >=60 mL/min/1. 73m2 LAB CHEMISTRY METHOD 03/23/2024 6:05 PM [facility] Comment:Calculation based on the??Chronic Kidney Disease Epidemiology Collaboration (CKD-EPI) equation refit??without adjustment for race. BUN/Creatinine Ratio 12.7 LAB CHEMISTRY METHOD 03/23/2024 6:05 PM [facility] Calcium 9.3 8.5 - 10.5 mg/dL LAB CHEMISTRY METHOD 03/23/2024 6:05 PM [facility] AST (SGOT) 35 10 - 42 unit/L LAB CHEMISTRY METHOD 03/23/2024 6:05 PM EST [facility] ALT (SGPT) 24 10 - 60 unit/L LAB CHEMISTRY METHOD 03/23/2024 6:05 PM [facility] Alkaline Phosphatase 95 42 - 121 unit/L LAB CHEMISTRY METHOD 03/23/2024 6:05 PM [facility] Total Protein 7.3 6.0 - 8.0 g/dL LAB CHEMISTRY METHOD 03/23/2024 6:05 PM [facility] Albumin 3.7 3.2 - 5.0 g/dL LAB CHEMISTRY METHOD 03/23/2024 6:05 PM [facility] Total Bilirubin 0.4 0.0 - 1.4 mg/dL LAB CHEMISTRY METHOD 03/23/2024 6:05 PM [facility] Blood Venous blood specimen / Unknown Venipuncture / Unknown 03/23/2024 5:15 PM EST 03/23/2024 5:36 PM EST us Melvin Schmitz MD LAB BLOOD ORDERABLES Katey l Result [facility] [address] [place] [address], from Last 3 Months or Most Recently Relevant to Health Maintenance [place] [address] [place] [address] MEDICARE Member Subscriber Plan / Payer (Ef fective 2016-Present) Name:Kurt Oreilly Relation to Subscriber:Self Name:Kurt Oreilly Payer ID:[id number] Group ID:[id number] Type:Not on file Address: [place] [address] [address] [address] Care Teams Laundry Operator Finishing Relationship Specialty Start Date End Date Josiane Hooper MD [address] [place] [phone] PCP - General Internal Medicine 12/23/16
--- OUTSIDE RECORDS SUMMARY | 2024-07-14 16:56 | XMS_ITS | Data Portability ---
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 GIven this and his unremarkable physical findings WITH improvement of symptoms after initiation of doxycycline, prednisone and tessalon perles, will have patient continue treatment. Ill encourage follow up with PCP as needed Pt had no cough during duration of visit. Resp easy and no difficulty noted with visit. Not available 06/26/2019 15:19:27 09/11/2020 09/11/2020 Overview/History : 80 yo male who is known to but new to this provider with a PMHx of depression, mild dementia, asthma, COPD, HTN, GERD, CKD, chronic abdominal pain, fibromyalgia, and BPH being seen for cough. Family reports he has complained of sinus pressure/headache, post nasal drip and feeling lousy for 2 weeks. Family reports he has had a non productive cough, & body aches for the past week. Denies any fevers. Reports normal appetite. No N/V/D. Reports wheezing at night- he has been taking his inhalers as prescribed. Exam: Pt is alert, non toxic appearing Ears: normal TM with cone of light visualized bilaterally, no erythema or foreign objects visualized R ear. L ear has mild erythema. Nose: turbinates pink, non boggy, (+) erythema, no evidence of bleeding or discharge, normal mucous membranes. Throat: moist mucous membranes, no evidence of thrush, erythema in pharynx, no exudate noted in oropharynx. Frontal and maxillary sinuses tender. No lymphadenopathy PULMONARY: Respiration's normal on room air, no evidence of accessory muscle use. Breath sounds rhonchi L lung, no wheeze/ or rales on auscultation. Speaks in full sentences, no increased work of breathing. CARDIOVASCULAR: Heart rate regular, regular rhythm, S1 and S2 auscultated, No murmur rub or gallop noted. Normal pulses, no edema noted on exam. Abd soft/round, nontender +BS DDx considered, but not limited to: COPD exacerbation likely Sinus infection likely Otitis media L ear likely Pneumonia possible however no fevers Covid less likely- fully vaccinated Bronchitis possible Flu considered-no fevers Work up/Results: CXR ordered Plan/Discussion: Patient likely has a sinus infection- since his symptoms have persisted x 2 weeks and he may also have pneumonia was started on: -Doxycycline 100mg 2x daily x 1 week- first dose given on scene Also concerns for COPD exacerbation- will prescribe a course of: -Prednisone 10mg 1x daily x 5 days To help with cough may take: -Tessalon Perles 100mg 3x daily as needed for cough -We will call with CXR results. -Advised to continue inhalers as prescribed. -Stay hydrated. -Rest. If you develop trouble breathing or chest pain->go to ED. The patient is advised to make an appt with PCP as neededto discuss ongoing symptoms/ further management. The patient is also advised to go to the ED immediately for any worsening symptoms. The patient understood and agreed with this plan. The patient was given discharge instructions and all questions were answered prior to team departure. In order to obtain further information and compare any laboratory results/values, I have accessed patient records on the [employer]. This information was pertinent in my medical decision making today. Proper Personal Protective Equipment (PPE), including gloves, eye protection and masks were donned and doffed appropriately and all equipment cleaned using approved technique with germicidal disposable wipes prior to and after care of this patient according to [facility]'s infection prevention protocols. Time On Scene with Patient: 00:58:33 [id number] Not available 09/11/2020 17:42:02 06/21/2022 06/21/2022 Time On Scene with Patient: 00:39:58 Brief Overview: 82 y/o male known to new to provider with hx of Asthma/ COPD, depression, DM, HTN, hyperlipidemia, OA, GERD, Gout, parkinson's disease. pt c/o cough x 2 weeks occasionally productive. nasal congestion with clear drainage. he has frontal RIVERA, scratchy throat. no cp, sob. he reports wheezing worse at night. he has used his rescue inhaler twice today. he reports in the past he has been prescribed benzonatate and that helped but he is out. he denies dizziness, weakness, abdominal pain, nausea, vomiting, diarrhea. Vital Signs: mildly hypertensive BP 142/80, HR 82, RR 18, T 98.7, O2 97% RA Exam: pleasant 82 y/o male chronically ill appearing, alert, NAD sitting in his recliner watching tv. eyes: PERRLA, no injection, icterus or discharge. nose: nares patent small amount clear nasa discharge bilaterally. Ears: TMs and EACs clear. mouth: moist mucous membranes no erythema, exudates, uvula is midline. no cervical lymphadenopathy. lungs: mild bilateral expiratory wheezes. no rales or rhonchi. heart: RRR no murmur rubs or gallops. peripheral edema 1+ bilaterally. no calf tenderness, edema, negative homans. strength is normal and equal bilaterally. skin: no rashes or lesions. parkinson's tremor noted. DDx considered, with rationale: Pneumonia: considered but he is afebrile, wheezing bilaterally. CHF: considered, 1+ peripheral edema bilaterally no reported weight gain. PE: considered but no tachycardia or hypoxia. Covid: considered but rapid negative. Influenza: considered but rapid was negative. Results/ work up: Rapid covid and flu were both negative. CXR pending. Plan: COPD Exacerbation: keep hydrated. ok to take otc tylenol as directed on the package for pain or fever. pt advised to use his rescue inhaler as directed by pcp. pt's will call and schedule CXR. start Rx Prednisone 20 mg take 2 tabs daily x 5 days. start Rx Benzonatate 200 mg 1 tab PO tid prn cough. recommend use of humidifier in his room. follow up with pcp in 3-5 days or sooner prn. go to the ER with new or worsening symptoms cp, sob, increased wheezing, dizziness, weakness. Proper Personal Protective Equipment (PPE), including gloves, eye protection and masks were donned and doffed appropriately and all equipment cleaned using approved technique with germicidal disposable wipes prior to and after care of this patient according to [facility]'s infection prevention protocols. [email or web address] Not available 06/21/2022 18:16:31 Plan of Treatment Reminders Order Date Submit Date Provider Last Modified By Organization Details Last Modified Time Details Appointments None recorded. Lab None recorded. Referral None recorded. Procedures None recorded. Surgeries None recorded. Imaging XR, chest, 2 view - cough x 2 weeks, sob. [facility] [address] [place], [address], 3 12:55:41 XR, chest, 2 view - concern for pneumonia 2020 [facility] [address] [place], [address], 1 13:28:19 Medication Orders prednisone 20 mg tablet 2022 023 [email or web address] [id number], [address] [place], [address], 3 17:57:55 benzonatate 200 mg capsule 2022 023 [id number], [address] [place], [address], 3 14:42:22 prednisone 10 mg tablet 2020 021 [email or web address] Not available 3 14:21:31 doxycycline hyclate 100 mg capsule 2020 021 [email or web address] [id number], [address] [place], [address], 3 14:18:28 doxycycline hyclate 100 mg capsule 2020 021 [email or web address] 5 [id number], [address] [facility], [place], [address], 3 14:18:28 Tessalon Perles 100 mg capsule 2020 021 [email or web address] 5 [id number], [address] [facility] [place], [address], 3 14:16:54 Patient TargetsNo targets recorded. Patient Instructions Encounter Date Encounter Id Patient Instructions Last Modified By Organization Details Last Modified Time 06/26/2019 [id number] [facility] came to your home for evaluation of a cough. You have had a cough for the past 2 weeks. It was worse for the past few days. NO fever You spoke with Dr. Melvin from [facility] and they sent you prescriptions for doycycline, prednisone and tessalon perles. You took them yesterday and you slept well last night. You are feeling better today. Your lungs sound with some expiratory wheezes but you are not having any shortness of breath. 'Your vital signs are; 130/70, 82 regular resp 20, O2 sat 98% RA Temp 98.2 Please follow up with Dr. Bright as agreed upon. IF you develop and shortness of breath, fevers, or you feel worse, go to the emergency department. No prescriptions given today. Thank you [facility] your [facility]. We cannot always find the exact cause of your symptoms during your initial visit. Please follow up with your primary care provider or specialist to be rechecked or seek medical attention if your symptoms do not go away or get worse. If you develop any new or worsening symptoms and need after hours care, please go to nearest ER and/or call 911. If you have additional concerns or develop a change in your condition between 8am-10pm, please call [facility] at [phone] to help navigate your care. Not available 06/26/2019 13:38:22 09/11/2020 [id number] -Doxycycline 100 mg 2x daily x 1 week -Prednisone 10mg 1x daily x 5 days -Tessalon Perles 100mg 3x daily as needed for cough -We will call with CXR results. -Stay hydrated. -Rest. If you develop trouble breathing or chest pain->go to ED. INSTRUCTIONS Medicines: Ibuprofen or acetaminophen: These medicines help lower a fever and treat aches. Refer to the bottles for proper dosing based on age and weight. Use as needed. Do not take either of these medicines for more than 3 days in a row. Prolonged use of Ibuprofen can hurt your kidney and stomach. Prolonged use of Tylenol can injure your liver. Cough medicine: Remk-xxp-sfbbzph (OTC) medicine helps loosen mucus in your lungs and make it easier to cough up. OTC cough medicine should NOT be used in children under age 3. Inhalers: You may need an inhaler to help you breathe easier and cough less. Inhalers help to relax the airways An inhaler gives medicine in a mist form so that you can breathe it into your lungs. If you were given an inhaler, take 2 puffs, four times per day for 2 days. After that, just use as needed for increased coughing, wheezing or tightness in chest. Steroid medicine: You may have been given prednisone or another steroid medication which helps open your air passages so you can breathe easier. How to use an inhaler: 1) Shake the inhaler well to make sure you get the correct amount of medicine per puff. Remove the cover from your inhaler's mouthpiece. 2) Exhale as much air from your lungs as you can. Put the mouthpiece in your mouth, past your front teeth and rest it on the top of your tongue. Do not block the mouthpiece opening with your tongue. 3) Breathe in through your mouth at a slow and steady rate. As you do this, press the inhaler to release the puff of medicine. When your lungs are full, hold your breath for 10 seconds. Then breathe out slowly through puckered lips or through your nose. 4) If you need to take more puffs, wait at least 1 minute between each puff. 5) Using a spacer / air chamber ensures that you get the maximum amount of medicine from the inhaler. 6) Rinse your mouth with water after you use the inhaler. This may keep you from getting a mouth infection or irritation. 7) Follow the instructions that come with your inhaler to clean it. Self Care: 1) Do not smoke or allow others to smoke around you. Please call the [place] Quit Line at to help in smoking cessation. Avoid chemicals, fumes, and dust. 2) Stay well hydrated 3) Seek care immediately if you: - develop a fever - develop a rash - become increasingly short of breath or you do not begin to improve 3-5 days (it may take 10 days for complete improvement) - cough up blood - have chest pain unrelated to coughing 4) Make appointment to follow up with you doctor within one week or sooner if directed by your [facility] provider. If you develop any new or worsening symptoms and need after hours care, please go to nearest ER and/or call 911. If you have additional concerns or develop a change in your condition between 8am-10pm, please call [facility] at [phone] to help navigate your care. Not available 09/11/2020 17:19:01 Reason for Referral None Reported. Results Created Date Observation Date Name Description Value Unit Range Abnormal Flag Note LastModifiedBy Organization Detail LastModifiedTime 09/13/19 21 XR, chest , 2 view No observ ation record ed. [email or web address] [facility] ([facility]) [address] [facility], [place], [address], 09/14/2020 13:02:55 06/23/19 23 06/22/2022 XR, chest , 2 view XRAY CHEST 2 VIEW Compar [email or web address]: 021 FINDIN GS: The heart is normal in size. The medias tinal silhou ette is within normal limits in size. The lungs demons trate no signif icant consol idatio n, masses , effusi ons or pneumo thorax . Osseou s struct ures show no acute abnorm ality. No foreig n body. CONCLU NATALI: No acute cardio pulmon bryce diseas e. ELECTR ONICAL LY SIGNED BY JAMEEL Ames M.D. 023 12:49: 11 PM EDT. XRAY CHEST 2 VIEW Compar [email or web address]: 021 Result s: The heart is normal in size. The medias tinal silhou ette is within normal limits in size. The lungs demons trate no signif icant consol idatio n, masses , effusi ons or pneumo thorax . Osseou s struct ures show no acute abnorm ality. No foreig n body. Conclu natali: No acute cardio pulmon bryce diseas e. Electr onical ly signed by JAMEEL Ames M.D. 023 12:49: 11 PM EDT. [email or web address] [facility] [address] [facility] [address], [place], [address], 06/23/2022 09:57:29 Result Notes None recorded. Procedures Surgical History Date Name Laterality Status Provider Name and Address Organization Details Recorded Time 09/12/19 Medication Review completed Lety Palmer NP [address] [place], [address], [place] [facility] 09/11/2020 16:40:21 Back Surgery completed KADIE Garduno [address], [place], [address], [place] [facility] 06/21/2022 14:27:40 Appendectomy completed KADIE Garduno [address], [place], [address], [place] [facility] 06/21/2022 14:27:52 Hernia Repair completed KADIE Garduno [address], [place], [address], [place] [facility] 06/21/2022 14:28:00 Imaging Results Imaging Date Name Status LastModified by Organiz ation Details LastModified Time 09/12/2020 XR, chest, 2 view completed [email or web address] [facility] ([facility]) [address] [facility], [place], [address], 09/14/2020 13:02:55 06/22/2022 XR, chest, 2 view completed [email or web address] [facility] [id number] [facility] [address], [place], [address], 06/23/2022 09:57:29 Procedure Notes None recorded. Medical Equipment None Reported. Allergies Allergen ID Allergen Name Allergen Category Reaction Reaction Severity Criticality Documentation Date Start Date Code Code System Note Provider Name and Address Organization Details Recorded Time 29243 ibuprofen medicatio n Not available Not available Not available 06/26/2019 5640 RxNorm FARZANEH EDMONDS, [employer]IO ENGINEER [address], [place], [address], [place] [facility] 0 13:33:13 20573 acetyl sulfisoxa zole medicatio n Not available Not available Not available 06/26/2019 61518 RxNorm FARZANEH EDMONDS, RADIO ENGINEER [address], [place], [address], [place] [facility] 0 13:33:22 60480 Lipitor medicatio n Not available Not available Not available 06/26/2019 29714 5 RxNorm FARZANEH EDMONDS, RADIO ENGINEER [address], [place], [address], [place] [facility] 0 13:33:31 Medications Name Sig Start Date Stop Date Status Note LastModified by Organization Details LastModified Time amoxicillin 500 mg capsule active Not Available Not Available Not Available latanoprost 0.005 % eye drops APLIQUE ANABEL GOTA EN EN LOS DOS OJOS AL ACOSTARSE active Not Available Not Available No t Available Pain Reliever Extra Strength (acetaminop hen) 500 mg tablet TAKE 2 TABLETS BY MOUTH THREE TIMES DAILY active Not Available Not Available No t Available prednisone 10 mg tablet Take 1 tablet every day by oral route in the morning for 5 days. 06/21 completed Not Available Not Available Not Available doxycycline hyclate 100 mg capsule Take 1 capsule by oral route. 06/21 completed Not Available Not Available Not Available naproxen 375 mg tablet TAKE 1 TAB BY MOUTH 2 TIMES A DAY FOR MODERATE PAIN W/ FOOD.USE LITTLE POSSIBLE TO CONTROLPA IN 06/21 completed Not Available Not Available Not Available albuterol sulfate 2.5 mg/3 mL (0.083 %) solution for nebulizatio n active Not Available Not Available Not Available carbidopa ER 25 mg-levodopa 100 mg tablet,exte nded release TOME ANABEL TABLETA ALEX VECES AL D A active Not Available Not Available No t Available trazodone 50 mg tablet TAKE 1/2 TABLET BY MOUTH DAILY AT BEDTIME 06/21 completed Not Available Not Available Not Available cetirizine 10 mg tablet TOME ANABEL TABLETA POR V A ORAL TODOS LOS D FOR 30 DAYS 06/21 completed Not Available Not Available Not Available pravastatin 40 mg tablet TOME ANABEL TABLETA TODOS LOS D active Not Available Not Available No t Available benzonatate 200 mg capsule TOME ANABEL C PSULA ALEX VECES AL D A CUANDO SEA NECESARIO POR 7 D active Not Available Not Available No t Available sucralfate 1 gram tablet TOME ANABEL TABLETA POR VIA ORAL CUATRO VECES AL ARVIN 06/21 completed Not Available Not Available Not Available prednisone 20 mg tablet TOME DOS TABLETAS POR V A ORAL TODOS LOS D SEG N LO INDICADO POR 5 D active Not Available Not Available No t Available melatonin 3 mg tablet TOME DOS TABLETAS POR V A ORAL DAILY AL ACOSTARSE FOR 30 DAYS. 06/21 completed Not Available Not Available Not Available chlorthalid one 25 mg tablet TOME ANABEL TABLETA POR V A ORAL TODOS LOS D FOR 90 DAYS active Not Available Not Available No t Available allopurinol 100 mg tablet TAKE 1 TABLET BY MOUTH 1 TIME EACH DAY. active Not Available Not Available No t Available ciprofloxac in 500 mg tablet TAKE ONE TABLET BY MOUTH 1 HOUR PRIOR TO PROCEDURE AND 1 TABLET 1 HOUR AFTER 09/11 completed Not Available Not Available Not Available tramadol 50 mg tablet 06/21 completed Not Available Not Available Not Available triamcinolo ne acetonide 0.1 % topical cream APPLY TO TRUNK, ARMS, LEGS DOS VECES AL D A . DECREASE USE SYMPTOMS IMPROVE. active Not Available Not Available No t Available pantoprazol e 20 mg tablet,hernesto yed release TOME ANABEL TABLETA TODOS LOS D 06/21 completed Not Available Not Available Not Available ketorolac 0.5 % eye drops INSTILL INSTILL ONE DROP TWICE A DAY INTO SURGICAL EYE active Not Available Not Available No t Available oxycodone-a cetaminophe n 5 mg-325 mg tablet 06/21 completed Not Available Not Available Not Available famotidine 20 mg tablet PLEASE SEE ATTACHED FOR DETAILED DIRECTION S active Not Available Not Available No t Available pravastatin 10 mg tablet TAKE 1 TABLET BY MOUTH DAILY FOR 90 DAYS, REDUCED DOSE FROM 40 TO 10 06/21 completed Not Available Not Available Not Available tamsulosin 0.4 mg capsule TOME ANABEL C PSULA TODOS LOS D AL ACOSTARSE active Not Available Not Available No t Available benzonatate 100 mg capsule TOME 1 C PSULA POR V A ORAL ALEX VECES AL D A FOR 7 DAYS 06/21 completed Not Available Not Available Not Available ropinirole 0.5 mg tablet TAKE 1 TABLET ORALLY 3 TIMES A DAY active Not Available Not Available No t Available dexamethaso ne 4 mg tablet 09/11 completed Not Available Not Available Not Available docusate sodium 100 mg capsule TAKE 1 CAPSULE BY MOUTH 2 TIMES A DAY FOR 30 DAYS NEEDED FOR CONSTIPAT ION active Not Available Not Available No t Available gabapentin 300 mg capsule TAKE 1 CAPSULE BY MOUTH AT BEDTIME 06/21 completed Not Available Not Available Not Available sertraline 25 mg tablet 06/21 completed Not Available Not Available Not Available omeprazole 20 mg capsule,del ayed release TOME ANABEL C PSULA TODOS LOS D active Not Available Not Available No t Available hydroxyzine HCl 25 mg tablet TOME 1-2 TABLETAS CADA 6 HOURS CUANDO SEA NECESARIO PARA EL PICOR active Not Available Not Available No t Available bisacodyl 5 mg tablet,hernesto yed release active Not Available Not Available Not Available mirtazapine 15 mg tablet TAKE 1 TABLET BY MOUTH AT BEDTIME FOR 30 DAYS active Not Available Not Available No t Available gabapentin 100 mg capsule TAKE 1 CAPSULE BY MOUTH AT BEDTIME 06/21 completed Not Available Not Available Not Available azelastine 137 mcg (0.1 %) nasal spray USE 1 SPRAY INTO EACH NOSTRIL TWICE A DAY active Not Available Not Available No t Available levofloxaci n 750 mg tablet 09/11 completed Not Available Not Available Not Available carbidopa 25 mg-levodopa 100 mg tablet TOME ANABEL TABLETA POR V A ORAL ALEX VECES AL D A active Not Available Not Available No t Available fluticasone propionate 50 mcg/actuati on nasal spray,suspe nsion SPRAY 2 SPRAYS INTO EACH NOSTRIL CADA MA DEIRDRE 06/21 completed Not Available Not Available Not Available finasteride 5 mg tablet TOME ANABEL TABLETA TODOS LOS D active Not Available Not Available No t Available diazepam 5 mg tablet 09/11 completed Not Available Not Available Not Available amoxicillin 875 mg-potassiu m clavulanate 125 mg tablet 09/11 completed Not Available Not Available Not Available nabumetone 500 mg tablet TAKE 1 TABLET BY MOUTH 2 TIMES A DAY NEEDED FOR SEVERE PAIN FOR 10 DAYS 06/21 completed Not Available Not Available Not Available Ventolin HFA 90 mcg/actuati on aerosol inhaler INHALE 2 PUFFS 4 TIMES A DAY FOR 30 DAYS CUANDO SEA NECESARIO FOR WHEEZING active Not Available Not Available No t Available oxycodone 5 mg tablet 06/21 completed Not Available Not Available Not Available azithromyci n 500 mg tablet 09/11 completed Not Available Not Available Not Available mirtazapine 7.5 mg tablet TAKE 2 TABLETS BY MOUTH AT BEDTIME 06/21 completed Not Available Not Available Not Available duloxetine 30 mg capsule,del ayed release TAKE 1 CAPSULE BY MOUTH AT BEDTIME 06/21 completed Not Available Not Available Not Available duloxetine 60 mg capsule,del ayed release TAKE ONE CAPSULE BY MOUTH EVERY DAY 06/21 completed Not Available Not Available Not Available pregabalin 50 mg capsule TAKE 1 CAPSULE BY MOUTH 2 TIMES A DAY,FOR 30 DAYS. CANCEL ANY PRIOR GABAPENTI N SCRIPTT 06/21 completed Not Available Not Available Not Available pregabalin 75 mg capsule TAKE 1 CAPSULE BY MOUTH TWICE A DAY FOR 10 DAYS 06/21 completed Not Available Not Available Not Available pregabalin 100 mg capsule TOME 1 C PSULA POR V A ORAL DOS VECES AL D A FOR 30 DAYS 06/21 completed Not Available Not Available Not Available hydroxyzine HCl 06/21 completed Not Available Not Available Not Available allopurinol 06/21 completed Not Available Not Available Not Available hydrocodone 5 mg-acetamin ophen 300 mg tablet 06/21 completed Not Available Not Available Not Available rasagiline 1 mg tablet Take 1 tablet every day by oral route. active Not Available Not Available No t Available Symbicort 80 mcg-4.5 mcg/actuati on HFA aerosol inhaler INHALE DANDO DOS SOPLIDOS DOS VECES AL D A active Not Available Not Available No t Available omeprazole 20 mg tablet,hernesto yed release PLEASE SEE ATTACHED FOR DETAILED DIRECTION S 06/21 completed Not Available Not Available Not Available Purelax 17 gram/dose oral powder DISSOLVE 17GM IN WATER AND TAKE BY MOUTH DAILY 06/21 completed Not Available Not Available Not Available Xifaxan 550 mg tablet TAKE 1 TABLET BY MOUTH 3 TIMES A DAY FOR 14 DAYS 09/11 completed Not Available Not Available Not Available Batool [facility] spacer TO BE USED WITH MDI INHALER DIRECTED. ICD-10 J45.909 active Not Available Not Available No t Available Jardiance 10 mg tablet TOME ANABEL TABLETA POR V A ORAL TODOS LOS D active Not Available Not Available No t Available Incruse Ellipta 62.5 mcg/actuati on powder for inhalation INHALE 1 PUFF BY MOUTH DAILY (DOSE SHOULD BE TAKEN AT LEAST 24 HRS APART) 06/21 completed Not Available Not Available Not Available Stiolto Respimat 2.5 mcg-2.5 mcg/actuati on solution for inhalation INHALE 2 PUFFS EVERY 24 HOURS 06/21 completed Not Available Not Available Not Available Pain Relief (lidocaine) 4 % topical cream APPLY 1 APPLICATI ON TOPICALLY 3 TIMES A DAY,X14 DAYS 06/21 completed Not Available Not Available Not Available Vitals Date Recorded Heart rate Body temperature Respiratory rate Oxygen saturation Oxygen saturation in Arterial blood by Pulse oximetry Systolic blood pressure Diastolic blood pressure Provider Name and Address Organization Details Last Updated DateTime 0 83 /min 98.2 [degF] 20 /min 98 % 98 % 130 mm[Hg] 70 mm[Hg] Not Available [facility] 0 13:33:31 Date Recorded Oxygen saturation Oxygen saturation in Arterial blood by Pulse oximetry Heart rate Body temperature Respiratory rate Systolic blood pressure Diastolic blood pressure Provider Name and Address Organization Details Last Updated DateTime 1 96 % 96 % 74 /min 97 [degF] 20 /min 120 mm[Hg] 64 mm[Hg] Not Available [facility] 1 17:21:00 Date Recorded Heart rate Respiratory rate Oxygen saturation Oxygen saturation in Arterial blood by Pulse oximetry Body temperature Systolic blood pressure Diastolic blood pressure Provider Name and Address Organization Details Last Updated DateTime 82 /min 18 /min 97 % 97 % 98.7 [degF] 142 mm[Hg] 80 mm[Hg] Not Available [facility] 14:23:25 Social History Question Answer Notes LastModified by Organizat ion Details LastModified Time Tobacco Smoking Status Former Smoker KADIE Garduno [address] [place], [address], [place] [facility] 06/21/2022 14:26:34 Do You Have An Advance Directive? No [email or web address] Information not available 06/21/2022 What Is Your Level Of Alcohol Consumption? None [email or web address] Information not available 06/21/2022 What Is Your Code Status? Full Code [email or web address] Information not available 06/21/2022 Fall Risk: Do You Feel Unsteady When Standing Or Walking? Yes [email or web address] Information not available 06/21/2022 Excessive Alcohol Or Drug Use No [email or web address] Information not available 06/21/2022 Does This Patient Have A PCP? Yes [email or web address] Information not available 06/21/2022 Has The Patient Seen Their PCP In The Past 6 Months? Yes [email or web address] Information not available 06/21/2022 Is This Patient In Hospice? No [email or web address] Information not available 06/21/2022 ADL: Do You Need Help With Daily Activities Such As Bathing, Preparing Meals, Dressing, Or Cleaning? Yes (Z74.1) Information not available 06/21/2022 Social Support: Do You Feel Safe? Yes [email or web address] Information no t available 06/21/2022 What Is Your Housing Situation Today? I Have Housing Information not available 06/21/2022 Do You Use Any Illicit Or Recreational Drugs? No [email or web address] Information not available 06/21/2022 Sex: Unknown Functional Status None recorded. Mental Status None recorded. Family History Relationship Description Onset Age of this Age Resolved Age Notes LastModified by Organization Details LastModified Time Mother Diabetes mellitus [email or web address] Not available 06/21 14:25:57 Medical History Condition Response Diabetes Y Coronary Artery Disease N CHF N Parkinson's Disease Y Cancer N Asthma Y COPD Y Depression Y Hypothyroidism N High Cholesterol Y Pulmonary Embolism N Hypertension Y A-fib N Kidney Disease N Past Encounters Encounter ID Performer Location Encounter Start Date Encounter Closed Date Diagnosis/Indication Diagnosis SNOMED-CT Code Diagnosis ICD10 Code Diagnosis Note [id number] FARZANEH EDMONDS [facility] [address] [place] [address] 06/26/2019 13:24:56 06/28/2019 11:36:19 Cough 68808496 R05 [id number] [facility]y [facility] [address] [place] [address] 09/11/2020 16:25:16 09/14/2020 10:02:52 Cough 03839790 R05 Acute sinusitis 39143449 J01.90 Acute exac erbation of chronic obstructive pulmonary disease 834356923 J44.1 Acute otitis media 72054 03 H66.92 [id number] KADIE Garduno [facility] [address] [place] [address] 06/21/2022 14:14:57 06/23/2022 14:56:48 Acute exacerbation of chronic obstructive pulmonary disease 253767700 J44.1 Essential hypertension 54013280 I10 Status of condition: {{Acute Ex acerbation /Acute on chronic Ch ronic* Sta ble Worsen ing/Progre ssion Unco ntrolled C ritical: Warrants escalation to ED. Undete rmined: Unclear staging of condition. Needs further evaluation and management by PCP and/or Specialist }}. Testing/Re sults: mildly elevated bp today 142/80. Discussion : pt is asymptomat ic. has not been sleeping well due to cough. continue current regimen. Plan, Medication Management & Follow-up recommenda tions: follow up with pcp as scheduled next week. go to the ER with worsening symptoms cp, sob, weakness, dizziness, RIEVRA, edema, vision changes. Type 2 arvin betes mellitus 91422022 E11.9 Status of condition: {{Acute Ex acerbation /Acute on chronic Ch ronic* Sta ble Worsen ing/Progre ssion Unco ntrolled C ritical: Warrants escalation to ED. Undete rmined: Unclear staging of condition. Needs further evaluation and management by PCP and/or Specialist }}. Testing/Re sults: n/a Discussion : per pt's dm is controlled . pt is asymptomat ic. pcp following his sugars, t does not have glucometer . Plan, Medication Management & Follow-up recommenda tions: follow up with pcp next week as scheduled. go to the ER with worsening symptoms cp, sob, dizziness, weakness, lethargy, polyuria, polydipsia , confusion, vomiting, abdominal pain. Health Concerns Section Related Observation LastModified by Organization Detai ls LastModified Time None Recorded Concern Status LastModified by Organization Details LastModified Time None Recorded Advance Directives Directive N: Payers Encounter Date Sequence Insurance Name Policy Number Policy Keith Covered Member ID Keith Member ID Guarantor Name 06/26/2019 1 [facility] - DOS PRIOR TO 2022 - DUAL ELIGIBLE (MEDICARE REPLACEMENT/AD VANTAGE - HMO) Kurt Oreilly [id number] Kurt Oreilly 09/11/2020 1 [facility] - DOS PRIOR TO 2022 - DUAL ELIGIBLE (MEDICARE REPLACEMENT/AD VANTAGE - HMO) Kurt Oreilly [id number] Kurt Oreilly 06/21/2022 1 [facility] - DOS PRIOR TO 2022 - DUAL ELIGIBLE (MEDICARE REPLACEMENT/AD VANTAGE - HMO) Kurt Oreilly [id number] Kurt Oreilly 06/21/2022 2 [place] [facility] Kurt Oreilly [id number] Kurt Oreilly Notes Date Note Type Note Provider Name and Address Organization Details Recorded Time 06/26/2019 text/html 79 year-old male with history of mild asthma, possible COPD, ex-smoker, HTN, HLD, kidney stones, gout, and arthritis, who calls to the home for evaluation of cough. Pt began with cough about 2 weeks ago. It has gotten stronger for the past 3 days. There has been no fevers, chills, nausea, vomiting, PT reports chest pain when he coughs. He denies any trouble with eating, bowel or bladder patterns. Pt wanted to be seen yesterday. He had a phone call with Dr. Melvin who was covering for Dr. Bright. Pt was given RX for prednisone, doxycycline and tessalon perles. He began these medications last night. He and his female family member reports patient slept well last night and he has been better today. There has been no coughing this morning which is a miracle per family member.Pt has been quarantined in apartment for the past 2 weeks. FARZANEH EDMONDS NP [address], [place], [address], [place] [facility] 06/26/2019 15:19:33 09/11/2020 text/html 80 YO male who i s known to but new to this provider with a PMHx of depression, mild dementia, asthma, COPD, HTN, GERD, CKD, chronic abdominal pain, fibromyalgia, and BPH being seen for cough. Family reports he has had a cough, & body aches for the past week. Denies any fevers, SOB, CP, N/V/D. Pt has been vaccinated for Flu and Covid. He reports 2 weeks of facial pain, sinus pressure/headaches and runny nose. Lety Palmer NP [address], [place], [address], [place] [facility] 09/12/2020 18:30:15 06/21/2022 text/html 82 y/o male know n to new to provider with hx of Asthma/ COPD, depression, DM, HTN, hyperlipidemia, OA, GERD, Gout, parkinson's disease. pt c/o cough x 2 weeks occasionally productive. nasal congestion with clear drainage. he has frontal RIVERA, scratchy throat. no cp, sob. he reports wheezing. he has used his rescue inhaler twice today. he reports in the past he has been prescribed benzonatate and that helped but he is out. he states he is pre diabetic and was started on jardiance 2 weeks ago, but he was getting headaches so pcp advised him to hold the med until his follow up next week. he denies dizziness, weakness, abdominal pain, nausea, vomiting, diarrhea. he has chronic edema in his lower legs and feet on and off. pt has not taken anything otc for cough. no known sick contacts. KADIE Garduno [address], [place], [address], [place] [facility] 06/21/2022 18:16:46
--- OUTSIDE RECORDS SUMMARY | 2024-07-14 16:56 | XMS_ITS | Clinical Summary ---
Author Organization [facility] Address [address] [facility] [address] [place] [address] Phone Care Team Providers Care Behavioral Health Care Manager Name Role Phone Josiane Hooper MD Primary Care Provider [phone] Allergies Active Allergy Reactions Criticality Noted Date Comments Atorvastatin Other (see comments) 09/25/2021 Other reaction(s): Abdominal pain increase in ALT was in 05/2004Mild increase in ALT to 53 on lipitor Indomethacin Other (see comments) 09/25/2021 per Urgent care medicine note, plan was to avoid this in future Sulfisoxazole Other (see comments) 05/19/2017 Other reaction(s): rash Medications acetaminophen (TYLENOL) 500 MG tablet Take 1,000 mg by mouth 1 Active azelastine (ASTELIN) 0.1 % nasal spray UNCLEAR if to continue, was from ENT, who said to Wait until EYE team visit , 0 Refills, Maintenance, 10/18/20 12:45:00 EDT, Partial fill upon patient request if the prescription is for a schedule II opioid drug. 1 Active benzonatate (TESSALON) 100 MG capsule TOME ANABEL C PSULA DOS VECES AL D A CUANDO SEA NECESARIO FOR COUGH 2 Active Symbicort 80-4.5 MCG/ACT inhaler 2 Active carbidopa-levod opa CR (SINEMET CR) 25-100 MG per CR tablet TOME ANABEL TABLETA ALEX VECES AL D A 2 Active chlorthalidone 25 MG tablet Take 1 tablet by mouth 2 Active clotrimazole (LOTRIMIN) 1 % cream Apply topically 2 (two) times a day Active DULoxetine (CYMBALTA) [address] capsule Take 60 mg by mouth 1 (one) time each day Active latanoprost (XALATAN) 0.005 % ophthalmic solution APLIQUE ANABEL GOTA EN EN LOS DOS OJOS AL ACOSTARSE 2 Active mometasone (ELOCON) 0.1 % cream APPLY SPARINGLY TWICE A DAY TO ECZEMA NEEDED 9 Active pantoprazole (PROTONIX) 20 MG EC tablet TOME ANABEL TABLETA TODOS LOS D 2 Active polyethylene glycol (GLYCOLAX) 17 GM/SCOOP powder Take 17 g by mouth 1 Active GaviLAX 17 GM/SCOOP powder DISSOLVE 17GM IN WATER AND TAKE BY MOUTH DAILY 2 Active pravastatin (PRAVACHOL) 40 MG tablet Take 1 tablet by mouth 2 Active rasagiline (AZILECT) 1 MG tablet Take 1 mg by mouth 1 (one) time each day 2 Active rOPINIRole (REQUIP) 0.5 MG tablet TOME ANABEL TABLETA ALEX VECES AL D A 2 Active Spacer/Aero-Hol ding Chambers (OptiChamber Mackenzie) misc 2 Active sucralfate (CARAFATE) 1 g tablet Take 1 g by mouth 2 Active triamcinolone (KENALOG) 0.025 % cream Apply topically 2 (two) times a day Active fluticasone (FLONASE) 50 MCG/ACT nasal spray Administer into affected nostril(s) 2 Active tamsulosin (FLOMAX) 0.4 MG 24 hr capsule Take 0.4 mg by mouth 1 (one) time each day Active allopurinol (ZYLOPRIM) 100 MG tablet TAKE 1 TABLET BY MOUTH 1 TIME EACH DAY. 90 tablet 3 3 Active spironolactone (Aldactone) 50 MG tabletIndicatio ns:Hypertensive disorder Take 1 tablet (50 mg total) by mouth 1 (one) time each day 90 tablet 3 4 09/02/19 25 Active D3 50 MCG (2000 UT) tablet Take 2,000 Units by mouth 1 (one) time each day 4 Active Active Problems Problem Noted Date Diagnosed Date Acute cystitis without hematuria, not otherwise specified 09/04/2023 Assessment & Plan (09/04/2023 12:25 PM EDT): Positive urine culture and h/o BPH Start Cephalexin 500 mg TID x 7 days Increase oral fluids Vitamin D deficiency, not otherwise specified Overview (05/10/2024): Low Vitamin D25 level of 17 as of 07/2023 On daily Vitamin D3 2,000 U supplement Monitor level annually Assessment & Plan (10/13/2023 3:09 PM EDT): Low Vitamin D25 level of 17 as of 07/2023 On daily Vitamin D3 2000U Monitor level q6-12 mos Assessment & Plan (09/04/2023 12:21 PM EDT): Low Vitamin D25 level of 17 Start daily Vitamin D3 2000U Recheck level in 6 months Type 2 diabetes mellitus wit h diabetic chronic kidney disease 12/12/2021 Benign prostatic hyperplasia 09/25/2021 Biliary calculus 09/25/2021 Carpal tunnel syndrome 09/25/2021 Overview (09/25/2021): on EMG Cervical disc disorder 09/25/2021 Chondrocalcinosis 09/25/2021 Stage 3a chronic kidney disease 09/25/2021 Overview (05/10/2024): Related to DM Nephropathy Creat 1.73, GFR 38 as of 02/2024, was 1.4, GFR 50 in 07/2023 Normal Lytes/BUN/Ca Avoid Nephrotoxins Maintain good DM and BP control No h/o Proteinuria, will monitor Will monitor bone mineralization levels Assessment & Plan (10/13/2023 3:06 PM EDT): Stable Creat 1.4, eGFR 50 as of 08/21/2023 Normal Lytes No Anemia Normal Ca 9.6, low Phos 2.6 Will check PTH - Last check was wnl at 56 in 07/2022 Assessment & Plan (09/04/2023 12:16 PM EDT): Stable Creat 1.4, eGFR 50 Normal Lytes No Anemia Normal Ca 9.6, low Phos 2.6 Will check PTH - Last check was wnl at 56 in 07/2022 Chronic rhinitis 09/25/2021 Overview (09/25/2021): per ENT 2020 Cyst of kidney 09/25/2021 Overview (09/25/2021): left Degeneration of lumbar intervertebral disc 09/25 Unspecified dementia, unspec ified severity, without behavioral disturbance, psychotic disturbance, mood disturbance, and anxiety 09/25/2021 Overview (09/25/2021): per geriatrics 2020 Diastasis recti 09/25/2021 Diverticulitis of colon 09/25/2021 Overview (09/25/2021): also on a 2003 colonospcy per a [facility] mid descending diverticulitis without drainable abscess collection [facility] Gastroesophageal reflux disease 09/25/2021 Gout 09/25/2021 Overview (09/25/2021): uric acid crystals seen on knee aspiration Hypertensive disorder 09/25/2021 Overview (05/10/2024): Blood pressure is well controlled On Spironolactone 50 mg QD and Chlorthalidone 25 mg QD No Edema Continue home BP monitoring and bring in readings to visits No medication changes today Follow low NA diet Avoid NSAIDs Target BP 120/80 Assessment & Plan (10/13/2023 3:08 PM EDT): Blood pressure well controlled, ranging 1 tees-130s/70s-80s at home, 115/64 here today On Spironolactone 50 mg QD and Chlorthalidone 25 mg QD No Edema observed today Continue to Monitor BP at home and bring in readings for review No medication changes made today Assessment & Plan (09/04/2023 12:20 PM EDT): Blood pressure running on the low side at 92/50, HR 88 - asymptomatic Leg Edema present On Spironolactone 50 mg QD and Chlorthalidone 25 mg QD Monitor BP at home and bring in readings for review Consider reducing one of these meds Hyperlipidemia 09/25/2021 Irritable bowel syndrome 09/25/2021 Impaired fasting glycemia 09/25/2021 Migraine 09/25/2021 Overview (09/25/2021): myofascial headache with Forward Head Posture. 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 Ian Lizama 07/08/2006 Obstructive sleep apnea syndrome 09/25/2021 Osteoarthritis 09/25/2021 Renal failure syndrome 09/25/2021 Encounters Date Type Department Care Team Description 05/10/2024 2:45 PM EST Office Visit [facility] [place] [address] [address] Jenna Gonzales ARNP Stage 3a chronic kidney disease (HCC) (Primary Dx); Hypertensive disorder; Vitamin D deficiency, not otherwise specified from Last 3 Months Immunizations Immunization Administration Dates Next Due Influenza Whole 05/01/2009,03/02/2006 Pfizer SARS-COV-2 03/11/2021,05/28/2020,05/07/19 21 Pneumococcal Conjugate 13-Valent 04/16/2016 Pneumococcal Polysaccharide 05/25/2014, 6 Td, Unspecified 10/08/2007 Tdap 04/16/2016 Zoster 01/02/2015 Family History Medical History Relation Comments Hypertension Brother Hypertension Father Stroke Father Hypertension Mother Stroke Mother Cancer Sister Diabetes Sister Hypertension Sister Relation Status Comments Brother Father Mother Sister Social History Tobacco Use Types Packs/Day Years Used Date Smoking Tobacco: Never Smokeless Tobacco: Never Tobacco Cessation:Counseling Given: Not Answered Alcohol Use Standard Drinks/Week Comments Not Currently 0 (1 standard drink = 0.6 oz pur e alcohol) Sex and Gender Information Value Date Recorded Sex Assigned at Not on file Legal Sex Male 9:26 AM EDT Gender Identity Not on file Sexual Orientation Not on file Last Filed Vital Signs Vital Sign Reading Time Taken Comments Blood Pressure 100/60 05/10/2024 3:08 PM EST Pulse 76 05/10/2024 3:08 PM EST Temperature - - Respiratory Rate - - Oxygen Saturation 97% 08/27/2022 1:28 PM EDT Inhaled Oxygen Concentration - - Weight 78.9 kg (174 lb) 05/10/2024 3:08 PM EST Height - - Body Mass Index - - Plan of Treatment Upcoming Encounters Date Type Department Care Team (Late st Contact Info) Description 11/09/2024 1:15 PM EDT Office Visit [facility] [address] [address] Jenna Gonzales ARNP [address] [address] Health Maintenance Due Date Last Done Comments Diabetes: Ophthalmology Exam 12/12/2021 Diabetes: Pedal Pulse Checked 12/12/2021 Diabetes: Sensory Foot Exam 12/12/2021 Diabetes: Visual Foot Exam 12/12/2021 Diabetes: Hemoglobin A1C 11/27/2022 023, 12/17/2021 Influenza Vaccine (Season Ended) 2024 05/01/2009, 03/02/2006 Pneumococcal Vaccine: 50+ Years Completed 04/16/2016, 05/25/2014, 10/17/2005 Hepatitis B Vaccine Aged Out No longe r eligible based on patient's age to complete this topic Procedures Procedure Name Priority Date/Time Associated Diagnosis Comments PTH, INTACT Routine 05/20/2024 10:01 AM EST FERRITIN Routine 05/20/2024 10:01 AM EST MAGNESIUM Routine 05/20/2024 10:01 AM EST VITAMIN D 25 HYDROXY Routine 05/20/2024 10:01 AM EST PROTEIN / CREATININE RATIO, URINE Routine 05/20/2024 10:01 AM EST IRON PANEL (FE, TIBC, TSAT) Routine 05/20/2024 10:01 AM EST CBC Routine 05/20/2024 10:01 AM EST RENAL FUNCTION PANEL Routine 05/20/2024 10:01 AM EST HEMOGLOBIN A1C Routine 08/27/2022 2:02 PM EDT Type 2 diabetes mellitus with diabetic chronic kidney disease (HCC) Cyst of kidney Idiopathic gout, not otherwise specified from Last 3 Months or Most Recently Relevant to Health Maintenance Results * (ABNORMAL) Iron Panel (Fe, TIBC, TSAT) (05/20/2024 10:01 AM EST) TIBC 249(L) 250 - 450 ug/dL [facility] UIBC 191 111 - 343 ug/dL [facility] Iron 58 38 - 169 ug/dL [facility] Iron Saturation (TSat) 23 15 - 55 % [facility] 05/20/2024 10:0 1 AM EST 05/20/[address] [facility] LAB BLOOD ORDERABLES Final Result [facility] [address] [place] [address] * Protein, Total, Random Urine w/Creatinine (Protein/Creat Ratio) (05/20/2024 10:01 AM EST) Creatinine, Ur 139.4 Not Estab. mg/dL [facility] Protein, Ur 15.7 Not Estab. mg/dL [facility] Urine Protein/Creatin ine Ratio 113 0 - 200 mg/g creat [facility] 05/20/2024 10:0 1 AM EST 05/20/2024 Jenna [facility] LAB URINE ORDERABLES Final Result Performing Organization Address City/[facility]/ZIP Co de Phone Number [facility] [address] [place] [address] * Vitamin D 25 Hydroxy (05/20/2024 10:01 AM EST) Vitamin D, 25-OH, Total 45.1 30.0 - 100.0 ng/mL [facility] Comment: Vitamin D deficiency has been defined by the [place] of Medicine and an Endocrine Society practice guideline as a level of serum 25-OH vitamin D less than 20 ng/mL (1,2). The Endocrine Society went on to further define vitamin D insufficiency as a level between 21 and 29 ng/mL (2). 1. IOM ([place] of Medicine). 2010. Dietary reference ?? intakes for calcium and D. [place]: The ?? National [employer]. 2. Beau MF, Felisa NC, Paula RIVERA, et al. ?? Evaluation, treatment, and prevention of vitamin D ?? deficiency: an Endocrine Society clinical practice ?? guideline. JCEM. 2010; 96(7):1911-30. 05/20/2024 10:0 1 AM EST 05/20/2024 Jenna [facility] LAB BLOOD ORDERABLES Final Result [facility] [address] [place] [address] * CBC (05/20/2024 10:01 AM EST) WBC 6.8 3.4 - 10.8 x10E3/uL [facility] RBC 4.86 4.14 - 5.80 x10E6/uL [facility] Hemoglobin 15.1 13.0 - 17.7 g/dL [facility] Hematocrit 45.1 37.5 - 51.0 % [facility] MCV 93 79 - 97 fL [facility] MCH 31.1 26.6 - 33.0 pg [facility] MCHC 33.5 31.5 - 35.7 g/dL [facility] RDW 12.9 11.6 - 15.4 % [facility] Platelets 183 150 - 450 x10E3/uL [facility] 05/20/2024 10:0 1 AM EST 05/20/2024 [facility] LAB BLOOD ORDERABLES Final Result [facility] [address] [place] [address] * PTH, Intact (05/20/2024 10:01 AM EST) PTH 34 15 - 65 pg/mL [facility] 05/20/2024 10:0 1 AM EST 05/20/2024 [facility] LAB BLOOD ORDERABLES Final Result [facility] [address] [place] [address] * Magnesium (05/20/2024 10:01 AM EST) Magnesium 1.9 1.6 - 2.3 mg/dL [facility] 05/20/2024 10:0 1 AM EST 05/20/[address] [facility] LAB BLOOD ORDERABLES Final Result [facility] [address] [place] [address] * (ABNORMAL) Ferritin (05/20/2024 10:01 AM EST) Ferritin 540(H) 30 - 400 ng/mL [facility] 05/20/2024 10:0 1 AM EST 05/20/[address] [facility] LAB BLOOD ORDERABLES Final Result Performing Organization Address City/[facility] Co de Phone Number [facility] [address] [place] [address] * (ABNORMAL) Renal Function Panel (05/20/2024 10:01 AM EST) Glucose 113(H) 70 - 99 mg/dL [facility] BUN 25 8 - 27 mg/dL [facility] Creatinine 1.43(H) 0.76 - 1.27 mg/dL [facility] eGFR CKD-EPI CR 2020 48(L) >59 mL/min/1.7 3 [facility] BUN/Creatinine Ratio 17 10 - 24 [facility] Sodium 140 134 - 144 mmol/L [facility] Potassium 4.1 3.5 - 5.2 mmol/L [facility] Chloride 105 96 - 106 mmol/L [facility] Bicarbonate (CO2) 21 20 - 29 mmol/L [facility] Calcium 9.3 8.6 - 10.2 mg/dL [facility] Albumin 4.2 3.7 - 4.7 g/dL [facility] Phosphorus 2.9 2.8 - 4.1 mg/dL [facility] 05/20/2024 10:0 1 AM EST 05/20/2024 Jenna [facility] LAB BLOOD ORDERABLES Final Result Performing Organization Address [facility] Co de Phone Number [facility] [address] [place] [address] * (ABNORMAL) Hemoglobin A1c (08/27/2022 2:02 PM EDT) Hemoglobin A1C 6.1(H) (4.0-5.6) % [facility] Comment: MONITORING: In known diabetic patients, hemoglobin A1c targets should be discussed with health care provider. DIAGNOSTIC USE: ??The [place] Diabetes Association (ADA) and the World Health Organization (WHO) recommend the use of HbA1c to diagnose diabetes using a threshold of 6.5%. Patients who have an HbA1c between 5.7% and 6.4% are considered at increased risk for developing diabetes in the future. CAUTION: Falsely low HbA1c results may be observed in patients with hemolytic anemia, homozygous forms of abnormal hemoglobin (e.g. SS, CC, SC), , recent blood loss or hemoglobin F greater than 7%. Fructosamine may be used as an alternate test in these cases. REFERENCE: ADA: Standards of Medical Care in Diabetes 2020, The Journal of Clinical and Applied Research and Education Volume 43, Supplement 1 Testing performed or reported by [facility], a Service of [facility], [address] [place] [address] Jett Levy MD, Can Carrier [facility]# [id number] Blood (Blood, Venous) 08/27/2022 2:02 PM EDT 08/27/2022 2:03 PM EDT Ian Carrasquillo MD LAB BLOOD ORDERABLES Final Re sult Performing Organization Address City/[facility]/ZIP Co de Phone Number [facility] from Last 3 Months or Most Recently Relevant to Health Maintenance Insurance ([id number]) * Guarantor: Kurt Oreilly Account Type Relation to Patient Date of Phone Billing Address Personal/Family Self [address] ([id number]) Care Teams Behavioral Health Care Manager Relationship Specialty Start Date End Date Josiane Hooper MD [address] [place] [address] PCP - General Internal Medicine 08/23/21
== END 2024-07-14 14:11 | disposition home or self-care (01) ==
LOC: HO.HSMS 13:51
PROVIDERS: PCP Internal Medicine; Visit Provider Psychiatry & Neurology Neurology
DX: G20.A2 Parkinson's disease without dyskinesia, with fluctuations (principal)
CPT/HCPCS: 99214; G2211

== ENCOUNTER → 2024-07-14 13:50 | Outpatient (BNVA) | payer OTHER, SELFPAY | PROVIDERS: PCP Internal Medicine; Visit Provider Psychiatry & Neurology Neurology | DX: G20.A2 Parkinson's disease without dyskinesia, with fluctuations (principal) | CPT/HCPCS: 99212 ==

== ENCOUNTER 2024-09-06 11:18 | Outpatient (AMB) | payer OTHER, SELFPAY ==
[2024-09-06 11:20] VITALS: BP 138/72; BMI 26.9
--- NOTE | 2024-09-06 11:20 | MHC.OFFVIS ---
Vital Signs 09/06/24 11:20 Height 5 ft 7 in Weight 172 lb BMI 26.9 BP 138/72 Blood Pressure Location Rt brachial Position Sitting Intake Visit Reasons: 2 month/MD approved Intake Note: patient presents for follow up med trial carb-levodopa PT has not been started yet Allergies atorvastatin [From Lipitor] Allergy (Verified 09/06/24 11:23) Abdominal Pain HPI Comments Details: 84-year-old male comes for follow-up of Parkinson's disease. He villeda snot wnat to come to appointments in person . he wnats to do televisit only.. He reports worsening of his symptoms, increased tremors , gait difficulty , freezing episodes. Currently he is on requip 0.5mg qid and , sinemet 25/100 qid. He reports that medications do not help with his symptoms and he still has lot of tremors and difficulty walking . He has dizziness but no falls. He denies any hallucinations or REM behaviors. He denies any diplopia or vertigo. . [facility] Medical History Parkinson's disease with fluctuating manifestations Cataract Parkinson's disease Irritable bowel syndrome Chronic kidney disease Diverticulitis Back pain Arthritis COPD (chronic obstructive pulmonary disease) Hyperlipidemia HTN (hypertension) BPH (benign prostatic hyperplasia) Surgical History Hx of parathyroidectomy History of back surgery Hx of neck surgery History of carpal tunnel release Hx of appendectomy Family History Father Stroke Mother HTN (hypertension) Diabetes Social History Alcohol intake: never Patient Tobacco Use Status: Never used Tobacco Physical Exam Vital Signs: BMI result Body Mass Index 26.9 Const General: cooperative and healthy appearing Orientation/consciousness: patient oriented x3 HEENT Head: Yes normal to inspection Neck Other: mild antecollis and restricted range of motion Neuro Other: Moderate decreased blink and facial expression slow tongue movements Voice- hypophonia and dysprosody Right UE moderate amplitude rest tremors Fine Finger movements - moderate decreased manish R>L Alternating hand movements - decreased manish R>L Hand movements - decreased manish Foot taps- decreased manish Manish cog wheel rigidity gait - stooped, slowness and decreased arm swing R>L, freezing episodes General: patient oriented x3 Motor exam (neuro): 5/5 motor strength present throughout Coordination: [id number] test normal Assessment & Plan Assessment & Plan (1) Parkinson's disease with fluctuating manifestations: Code(s): G20.A2 - Parkinson's disease without dyskinesia, with fluctuations Category: Medical Qualifiers: Dyskinesia presence: without dyskinesia Qualified Code(s): G20.A2 - Parkinson's disease without dyskinesia, with fluctuations Plan Increase ropinirole 1 mg qid and sinemet Cr 25/100 qid Increase fluids Home PT for gait training and balance Increase exercise. Orders: Referrals [facility]Hospice Referral G20.A2 - Parkinson's disease without dyskinesia, with fluctuations Medications: Changed From ropinirole 0.5 mg PO QID 120 tabs 6RF To ropinirole 1 mg PO QID 120 tabs 6RF Coding Level of Care Code Est Pt Level 4 (62631) Complex EM visit Add On G2211 Diagnoses Parkinson's disease without dyskinesia, with fluctuating manifestations G20.A2 Dyskinesia presence: without dyskinesia
--- OUTSIDE RECORDS SUMMARY | 2024-09-06 13:36 | XMS_ITS | Data Portability ---
Author Organization [employer] [facility], [facility] Address [address] [place] [address] Care Team Providers Care Laboratory Veterinarian Name Role Phone HIM CCA OTHER RAFAEL [...] Thursday and a scheduled stress test. VSS. Clam Digger on site reports b/l mild lower extremity [...] in the field was performed by my telegraph inspector colleague, as noted above, I provided real-time [...] assessment and plan as documented by the telegraph inspector. I provided real time medical direction for this encounter and was immediately available to provide additional phone based assistance as needed. History as noted by telegraph inspector. Pt with history of HTN, CKD, dementia, [...] symptoms including diffuse myalgias and also describing SWITCH COUPLER cough and rhinorrhea. No fevers. On exam, [...] with them. [email or web address] Not available 01/12/2024 12:19:37 07/25/2024 07/25/2024 I provided real -time medical direction via phone for this encounter, and was available for additional phone based assistance as needed. I have reviewed and agree with the Assessment and Plan as documented by the Clam Digger. We discussed the diagnostic uncertainty of home visits and the risk associated with this. In this case the patient and I felt this to be an acceptable and reasonable amount of risk given the benefit of avoiding an ED visit. The patient/ given the opportunity to ask questions. Not available 07/25/2024 11:30:45 Plan of Treatment Reminders Order Date Submit Date Provider Last Modified By Organization Details Last Modified Time Details Appointments None recorded. Lab rapid SARS CoV 2 Ag, QL IA, respiratory specimen 2024 025 [email or web address], [address] 04/28/202 5 11:18:24 rapid flu (A+B) 2024 025 [email or web address] 0 [facility], [address] [place] [address], [address] 5 11:18:25 BMP, serum or plasma 2024 025 VÍCTOR [facility], [address] [place] [address], [address] 5 13:33:06 rapid SARS CoV 2 Ag, QL IA, respiratory specimen 2023 024 [email or web address] [facility], [address] [place] [address], [address] 4 11:37:24 rapid flu (A+B) 2023 024 btils [facility] - [facility], [address] [place] [address], [address] 4 11:37:24 BMP, serum or plasma 2023 024 btils [facility] - [facility], [address] [place] [address], [address] 4 11:48:10 hemoglobin + hematocrit, blood 2023 024 [email or web address] [facility], [address] [place] [address], [address] 4 11:48:10 hemoglobin + hematocrit, blood 2023 024 [email or web address] [facility], [address] [place] [address], [address] 4 11:55:10 BMP, serum or plasma 2023 024 [email or web address] [facility], [address] [place] [address], [address] 4 11:55:53 rapid SARS CoV 2 Ag, QL IA, respiratory specimen 2023 024 [email or web address] [facility], [address] [place] [address], [address] 4 11:36:49 rapid flu (A+B) 2023 024 [email or web address] [facility], [address] [place] [address], [address] 4 11:37:03 rapid strep group A, throat 2023 024 [email or web address] [facility], [address] [place] [address], [address] 4 11:36:56 Referral None recorded. Procedures None recorded. Surgeries None recorded. Imaging None recorded. Medication Orders benzonatate 100 mg capsule 2024 025 [email or web address] 0 [facility]acy #[id number], [address] [place], [address], 5 11:22:18 benzonatate 100 mg capsule 2024 025 [facility] #0488, [address] [place], [address], 5 12:05:33 ketorolac 30 mg/mL injection solution 2023 024 [email or web address] [facility] #0488, [address] [place], [address], 4 11:48:10 Lasix 20 mg tablet 2023 024 [email or web address] [facility] #0488, [address] [place], [address], 4 13:00:33 Augmentin 875 mg-125 mg tablet 2023 024 [facility]armacy #0488, [address] [place], [address], 4 12:02:34 Tessalon Perles 100 mg capsule 2023 024 [facility] #0488, [address] [place], [address], 4 12:02:34 furosemide 10 mg/mL injection solution 2022 023 [email or web address] [facility] #[id number], [address] [place], [address], 3 10:55:40 Patient TargetsNo targets recorded. Patient InstructionsNo instructions recorded. Reason for Referral None Reported. Results Created Date Observation Date Name Description Value Unit Range Abnormal Flag Note LastModifiedBy Organization Detail LastModifiedTime 07/15/19 24 07/15/2023 BMP, serum or plasm a BUN 27 Not Available [facility] [address], [address] 07/15/2023 11:33:56 07/15/19 24 07/15/2023 BMP, serum or plasm a Ca 1.22 Not Available [facility] [address], [address] 07/15/2023 11:33:56 07/15/19 24 07/15/2023 BMP, serum or plasm a CI- 105 Not Available [facility] [address], [address] 07/15/2023 11:33:56 07/15/19 24 07/15/2023 BMP, serum or plasm a CRE 1.6 Not Available [facility] [address], [address] 07/15/2023 11:33:56 07/15/19 24 07/15/2023 BMP, serum or plasm a GLU 135 Not Available [facility] [address], [address] 07/15/2023 11:33:56 07/15/19 24 07/15/2023 BMP, serum or plasm a K+ 140 Not Available [facility] [address], [address] 07/15/2023 11:33:56 07/15/19 24 07/15/2023 BMP, serum or plasm a Na+ 3.9 Not Available [facility] [address], [address] 07/15/2023 11:33:56 07/15/19 24 07/15/2023 BMP, serum or plasm a tCO2 23 Not Available [facility] [address], [address] 07/15/2023 11:33:56 07/15/19 24 07/15/2023 hemog lobin + hemat ocrit , blood Hemoglobin 15 Not Available [facility] [address] [place] [address], [address] 07/15/2023 11:33:16 07/15/19 24 07/15/2023 hemog lobin + hemat ocrit , blood Hematocrit 46 Not Available [facility] [address] [place] [address], [address] 07/15/2023 11:33:16 07/15/19 24 07/15/2023 rapid flu (A+B) Flu negati ve Not Available [facility] [address] [place] [address], [address] 07/15/2023 11:36:00 07/15/19 24 07/15/2023 rapid strep group A, throa t Strep negati ve Not Available [facility] [address] [place] [address], [address] 07/15/2023 11:36:29 07/15/19 24 07/15/2023 rapid SARS CoV 2 Ag, QL IA, respi rator y speci men rapid SARS CoV 2 Ag, QL IA, respiratory specimen negati ve Not Available [facility] [address] [place] [address], [address] 07/15/2023 11:34:12 01/12/20 24 01/12/2024 rapid flu (A+B) Flu negati ve Not Available [facility] [address] [place] [address], [address] 01/12/2024 11:36:53 01/12/20 24 01/12/2024 rapid SARS CoV 2 Ag, QL IA, respi rator y speci men rapid SARS CoV 2 Ag, QL IA, respiratory specimen negati ve Not Available [facility] [address] [place] [address], [address] 01/12/2024 11:36:49 07/26/19 25 07/25/2024 rapid flu (A+B) Flu negati ve Not Available [facility] [address] [place] [address], [address] 07/25/2024 11:17:57 07/26/19 25 07/25/2024 rapid SARS CoV 2 Ag, QL IA, respi rator y speci men rapid SARS CoV 2 Ag, QL IA, respiratory specimen positi ve Not Available [facility] [address] [place] [address], [address] 07/25/2024 11:17:45 Result Notes None recorded. Medical Equipment None Reported. Allergies Allergen ID Allergen Name Allergen Category Reaction Reaction Severity Criticality Documentation Date Start Date Code Code System Note Provider Name and Address Organization Details Recorded Time 2408 Lipitor medicatio n Not available Not available Not available 08/21/2022 93858 5 RxNorm Not Available [facility] - production 5 09:07:20 2409 acetyl sulfisoxa zole medicatio n Not available Not available Not available 08/21/2022 41723 RxNorm Rachele Dahl MD [address] [facility],[address], [place], [address] , [facility] [employer] [facility] 12:22:09 Medications Name Sig Start Date Stop Date Status Note LastModified by Organization Details LastModified Time Augmentin 875 mg-125 mg tablet Take 1 tablet every 12 hours by oral route for 7 days. 2023 active Not Available Not Available Not Avai lable ketorolac 30 mg/mL (1 mL) injection solution Inject 1 mL every 6 hours by intramuscul ar route. 2022 active Not Available Not Available Not Avai lable benzonatate 100 mg capsule Take 100 mg 3 times a day by oral route as needed, for cough. 2024 active Not Available Not Available Not Avai [...] Avai lable potassium chloride ER 20 mEq tablet,exten ded release Take 1 tablet every day by oral route for 3 days. 2022 active Not Available Not Available Not Avai lable Paxlovid 300 mg (150 mg x 2)-100 mg tablets in a dose pack Take 1 dose pk by oral route. 2022 active Not Available Not Available Not Avai lable Vitals Date Recorded Respiratory rate Body temperature Heart rate Oxygen saturation Oxygen saturation in Arterial blood by Pulse oximetry Systolic blood pressure Diastolic blood pressure Provider Name and Address Organization Details Last Updated DateTime 4 18 /min 100.1 [degF] 86 /min 98 % 98 % 120 mm[Hg] 76 mm[Hg] Not Available [facility] - production 4 11:28:41 Date Recorded Body height Provider Name an d Address Organization Details Last Updated DateTime 07/25/2024 170.18 cm Carlos Barboza [address] [facility],[address] [facility], [place], [address], [place] - [employer] 07/25/2024 11:25:14 Date Recorded Oxygen saturation Oxygen saturation in Arterial blood by Pulse oximetry Body temperature Respiratory rate Heart rate Systolic blood pressure Diastolic blood pressure Provider Name and Address Organization Details Last Updated DateTime 5 95 % 95 % 100.4 [degF] 18 /min 96 /min 106 mm[Hg] 67 mm[Hg] Not Available [facility] - production 5 11:13:59 Date Recorded Body temperature Oxygen saturation Oxygen saturation in Arterial blood by Pulse oximetry Body weight Heart rate Respiratory rate Systolic blood pressure Diastolic blood pressure Provider Name and Address Organization Details Last Updated DateTime 4 98.4 [degF] 95 % 95 % 72552.6 g 86 /min 18 /min 133 mm[Hg] 72 mm[Hg] Not Available [facility] 4 12:40:37 Date Recorded Body weight Body height Body temperature Oxygen saturation Oxygen saturation in Arterial blood by Pulse oximetry Respiratory rate Heart rate Systolic blood pressure Diastolic blood pressure Provider Name and Address Organization Details Last Updated DateTime 4 68783.6 4 g 170.18 cm 98 [degF] 97 % 97 % 16 /min 90 /min 109 mm[Hg] 71 mm[Hg] Not Available [facility] - production 4 11:27:23 Date Recorded Body height Body temperature Oxygen saturation Oxygen saturation in Arterial blood by Pulse oximetry Body weight Respiratory rate Heart rate Systolic blood pressure Diastolic blood pressure Provider Name and Address Organization Details Last Updated DateTime 3 170.18 cm 98.4 [degF] 97 % 97 % 22384.6 4 g 18 /min 90 /min 116 mm[Hg] 71 mm[Hg] Not Available [facility] - production 10:19:19 Social History None recorded. Functional Status None recorded. Mental Status None recorded. Family History Nothing Reported. Medical History No medical history recorded. Past Encounters Encounter ID Performer Location Encounter Start Date Encounter Closed Date Diagnosis/Indication Diagnosis SNOMED-CT Code Diagnosis ICD10 Code Diagnosis Note [id number] Nathan Boss MD Main - [address] [address] 12/05/2021 15:42:21 12/23/2021 12:55:02 Chest pain 02684573 R07.9 EKG with no acute ST-T wave changes Fibromyalgia 207807043 M 79.7 Vitals stable. Declining repeat strep/covi d at this time. [id number] Rachele Dahl MD Main - [address] [address] 08/21/2022 12:21:32 08/25/2022 18:27:30 Chronic pain syndrome 906912487 G89.4 fibromyalg ia- with peripheral edema -advised [...] the ER Edema of l ower extremity 656237673 R60.0 [id number] Kellen Wheat MD Main - [address] [address] 09/12/2022 11:21:10 07/29/2024 12:44:50 Fall W19.XXXA 82 year old male being [...] after a mechanical fall, toradol [place]. [id number] [facility] [address] [place] [id number] 09/28/2022 14:36:42 09/29/2022 10:49:43 Edema of lower extremity 894168634 R60.0 [id number] [facility] [address] [place], [place] [address] 10/29/2022 16:48:44 10/30/2022 12:12:37 Chest pain 00133052 R07.9 As above. Call to the [facility] ER-EMS contacted by medic for transport [id number] Davis Chadwick MD [facility] [place] [address] 12/05/2022 13:28:03 12/06/2022 16:03:41 COVID-19 [id number] U07.1 This 82-year-ol d male has had URI symptoms for several days. Today his COVID-19 screen was positive. I ordered Paxlovid. He will follow-up with his PCP. The patient agreed with this plan. Acute COVID-19 [id number] 8 U07.1 [id number] Alana Manzano MD [facility] - [address] [address] 02/02/2023 10:19:15 02/03/2023 11:43:29 Edema of lower extremity 783215261 R60.0 [id number] LANDON [facility]AR[facility]ANAN [facility] [address] [place] [phone] 07/15/2023 11:28:39 07/15/2023 15:17:36 Fatigue 34776012 R53.83 Cough 13409092 R05.9 Acute sinusitis 93434121 J01.90 [id number] [facility]ude [facility]le [facility] [address] [place] [phone] 10/23/2023 12:40:29 10/23/2023 16:23:22 Bilateral lower leg edema 877188810 R60.0 As noted, we were called to see this patient regarding concerns of b/l LE edema. Evaluation in the field was performed by my telegraph inspector colleague, as noted above, I provided real-time [...] has no chest pain, dyspnea, orthopnea. Per telegraph inspector he is on the couch and has [...] chest pain, dyspnea, changes to mobility . [id number] Jhonny Maynard MD [facility] [address] [place] [phone] 01/12/2024 11:27:13 01/12/2024 18:42:37 Viral upper respiratory tract infection 243121553 J06.9 [id number] Rachele Dahl MD [facility] [address] [place] [id number] 07/25/2024 11:13:53 07/25/2024 13:30:15 COVID-19 038120720 U07.1 Allergies and pharmacy verified I reviewed the risks/ benefits and side effects of Paxlovid at length with the patient/ to help avoid /hosp italizatio n- he had paxlovid in 2022. would like it again- made aware of possible rebound/n/ v/d. Advised if develops CP/persist ent palpitatio ns /severe SOB/ vision changes/ severe headache/ AMS/very stiff muscles/ significan t tremors/ Hi fever uncontroll ed by anti-pyret ics to go to the ER as these could be signs of severe covid or medication reaction. Reviewed all of patient's medication s and possible interactio ns with Paxlovid/n eed for cessation of statins while on the Paxlovid Due to history of CKD will check BMP prior to dosing Paxlovid- today cr 1.7 will need renal dose paxlovid-i nitially informed that today was day 4 or 5 of his symptoms-a nd it turns out this has been going on for a full week and he is not worsening. Advised it is too late to start Paxlovid d/w cough suppressio n- aware tessalon/b enzonatate -may not be covered-st ill requesting Rx. Advised to stay well-marcial perez- has Tylenol 500 mg at home - advised Tylenol 500 mg every 4- 6 hours-max dose 2500 mg per 24 hours as needed for fever/pain Has albuterol MDI that he has not been using advised 2 puffs 4 times a day while ill- Patient and verbalized understand ing of all instructio ns Health Concerns Section Related Observation LastModified by Organization Detai ls LastModified Time None Recorded Concern Status LastModified by Organization Details LastModified Time None Recorded Advance Directives Directive None Recorded Payers Insurance Date Sequence Insurance Name Policy Number Policy Keith Covered Member ID Keith Member ID Guarantor Name 07/25/2024 1 [facility] - DOS PRIOR TO 2022 - DUAL ELIGIBLE (MEDICARE REPLACEMENT/ADV ANTAGE - HMO) Kurt Oreilly [id number] Kurt Oreilly 07/29/2024 1 [facility] - DOS ON OR AFTER 2022 - DUAL ELIGIBLE - [employer] AND ONE CARE (MEDICARE REPLACEMENT/ADV ANTAGE - HMO) Kurt Oreilly [id number] Kurt Oreilly Notes Date Note Type Note Provider Name and Address Organization Details Recorded Time 02/02/2023 text/html [facility] Nursing Assessment: Reason For [...] .................... .................... .................... .................... .................... .................... . Clam Digger Note From Bladimir Linares: Mr. rOeilly is an 82 YOM with hx of CHF, HLD, HTN, GERD, gout, Alzheimer? s . Pt reports intermittent CP with exertion for two months. Pt sts CP usually lasts 15-20 minutes before resolving on its own. Pt has imaging aide f/u this Thursday. Pt also reports increased [...] stable angina and a mild CHF exacerbation. [facility] contacted and pt treated with furosemide 20 mg IVP. Pt instructed to keep cardiology appointment this Thursday and to seek emergent medical care for new or worsening sx, which are reviewed with him. .................... .................... .................... .................... .................... .................... .................... . Disposition: Kobi Manzano MD [address] [place] [address],[address], [place], [address], [employer] [facility] 02/02/2023 17:17:58 07/15/2023 text/html CRC Nurse Triage Notes (Wilfrido Reis): Chief Complaints: URI, Weakness/Lethargy PMH: COPD/Asthma Allergies: Unknown Comments: Lacquerer verified the member's name//address and phone number. Member's reports mbr with cough, body aches, and generalized weakness for the last couple weeks. Mbr also c/o throat and sinus pain. Education provided on the response time and the member was advised to monitor reported s/s and seek emergency treatment if needed -Dayday Reis RN .................... .................... .................... .................... .................... .................... .................... . Clam Digger Note From Juanjose Wyatt: Dispatched to the [...] abx and cough medication. Pt advised to turkey picker OTC nasal saline. Red flags discussed. ALL times are approx. .................... .................... .................... .................... .................... .................... .................... . Disposition: Fulfilled LANDON NARAYANAN MD [address] [place] [address],[address], [place], [address], [facility] 07/15/2023 12:29:23 10/23/2023 text/html CRC Nurse Triage [...] syndrome, unspecified type (resolved 09/19/2020),Chronic abdominal pain (feptlkhq63/23/2021) , Shuffling gait (resolved 09/19/2020), Tremor (resolved [...] .................... .................... .................... .................... .................... .................... . Clam Digger Note From Denisse Hernandez: Pt reports 2-3 [...] been primarily in recliner due to pain. C consulted, rx lasix sent to pharmacy which will get today and follow up with pcp Thursday regarding outpatient services and further pain management. Red flags reviewed. .................... .................... .................... .................... .................... .................... .................... . Disposition: Fulfilled Maude Gayle MD [address] [facility],[address], [place], [address], [facility] 10/23/2023 13:01:49 01/12/2024 text/html This was a supervised home visit with telegraph inspector Bladimir Linares. CRC Nurse Triage Notes (Viviana Mari): Reason [...] pain. Will place referral for pain eval. Clam Digger Organization Information for Bladimir Linares Legal Name: [facility] Transportation Address: [address] [place] [address], [place] [address], Community Outreach Manager: Chinedu Frank MD CLIA No.: [id number] Clam Digger POC Test Results from Bladimir Linares Rapid [...] .................... .................... .................... .................... .................... .................... . Clam Digger Note From Bladimir Linares: Pt reports two [...] . Disposition: Fulfilled Jhonny Maynard MD [address] [facility],[address], [place], [address], [place] [facility] [employer] 01/12/2024 12:19:51 07/25/2024 text/html CRC Nurse Triage Notes (Maria Luisa Nash): Reason For Request: Pt's spouse reporting the patient did not sleep last night>cough>pain around his sinuses>pain all over his bodyDenies: Increased work of breathing/labored ? with or without fever Unable to speak in full sentences without distress Discoloration of skin -cyanosis Needs to sleep sitting up, can? t catch breath Shortness of breath in setting of confusion Chief Complaints: Breathing Problems, Common Cold, Cough, Dizziness, HeadachePMH: COPD/AsthmaPMH Reviewed at 07/25/2024:07Allergies Reviewed at 07/25/2024:07Comments: 84 y.o male complains of Breathing Problems, Common Cold, Cough, Dizziness, Headache Patients calling in to place a referral, he was identified via name and .Patient with a one week history of nonproductive cough, sinus pressure, body aches, pleuritic chest pain, occasional wheezes and shortness of breath, as well headaches and dizziness. He does not wear home o2, has inhalers, he has not taken any OTC medications.He denies fever/chills, no current nausea, vomiting or diarrhea, but had diarrhea a couple weeks ago. PM- Parkinsons I provided information on the mobile health provider response time and advised the patient and/or caregiver to monitor reported signs and symptoms. I discussed the warning signs of when to seek emergency care. Clam Digger Organization Information for Juan Pablo Simeon Legal Name: [employer].?Address: [address] [place] [address], Medical Director: Theron GARCIAS No.: [id number] Clam Digger POC Test Results from Juan Pablo Simeon Rapid COVID antigen (11:10:13)COVID: +Attachments uploaded as part of this test result can be found under Documents section. Rapid influenza antigen (11:10:14)Flu: -Attachments uploaded as part of this test result can be found under Documents section. SEGMD: On record review has hx copd/ per nephrology note 10/13/2023 patient also has a history of CKD 3A. He was unaware of low-grade fever- has not had any anti-pyretics. Has an albuterol MDI but has not used it for 2 days. iSTAT Chem8+ (11:42:04) Na: 136 mEq/L K: 4.2 mEq/L Cl: 103 mEq/L iCa: 1.25 mmol/L TCO2: 21 mmol/L Glu: 113 mg/dL BUN: 22 mg/dL Crea: 1.7 mg/dL Hct: 45 % Hb: 15.3 g/dL A mmol/L Cartridge Number: --- Attachments uploaded as part of this test result can be found under Documents section. .................... .................... .................... .................... .................... .................... .................... . Clam Digger Note From Juan Pablo Simeon: [facility] dispatched to the address listed above for the report of a male green party with flu like symptoms. Arrival on scene, patient was found inside ambulating to bathroom with unsteady gait at baseline with history of gout. Patient ambulated to seated position in chair, patient alert and oriented x4, patent airway, breathing non labored speaking in complete sentences, skin WPD. +/= Chest rise. -SOB, -CP, -NVD, -Trauma, +Fever. GCS 15. lung sounds mostly clear, rhonchi in left base on expiration. Patient primarily Faroese speaking so translated for [facility]. Patient reports flu like symptoms for about 1 week including non productive cough, body aches, and nasal congestion. denies any fever, chills, sore throat, or NVD. reports that patient has been intermittently using his inhaler for shortness of breath, last time using it being 2 days ago. denies any use of OTC cough medications, tylenol, or ibuprofen. denies any chest pain, denies any current shortness of breath, denies recent trauma, denies issues urinating. reports normal food/fluid intake, reports medication compliance. reports that the patient symptoms are starting to improve. Patient vital signs obtained as noted. COVID/FLU POC test performed and positive for COVID. [facility] consulted, provided order for BMP and 100mg Benzonatate PO. 100mg Benzonatate PO administered without incident, patient rights verified prior. Blood drawn from right AC via 23 gauge butterfly needle and removed at end of blood draw. ISTAT BMP performed as noted. [facility] consulted again, advised she would send Benzonatate prescription to patient preferred pharmacy, advised patient is not candidate for Paxlovid due to illness being past 5 days. [facility] also advised patient to take Tylenol 500mg Every 4-6 hours for fever with maximum of 2500mg per day, advised patient to take inhaler 2 puffs 4 times a day. Red flags discussed with patient and , advised to call 911 if patient condition worsens with symptoms such as difficulty breathing, chest pain, vision changes, uncontrolled fevers, etc. SC8 clear. [facility] Lab Orders: rapid SARS CoV 2 Ag, QL IA, respiratory specimen: Performed rapid flu (A+B): Performed BMP, serum or plasma: Performed [facility] Medication Orders: benzonatate 100 mg capsule: Administered .................... .................... .................... .................... .................... .................... .................... . [facility] Consulted: Rachele Dahl .................... .................... .................... .................... .................... .................... .................... . Disposition: Fulfilled Rachele Dahl MD [address] [facility],[address], [place], [address], ALAN - SIERRA FUENTES 07/25/2024 13:22:32
== END 2024-09-06 11:39 | disposition home or self-care (01) ==
LOC: HO.HSMS 11:19
PROVIDERS: PCP Internal Medicine; Visit Provider Psychiatry & Neurology Neurology
DX: G20.A2 Parkinson's disease without dyskinesia, with fluctuations (principal)
CPT/HCPCS: 99214; G2211

== ENCOUNTER → 2024-09-06 11:18 | Outpatient (BNVA) | payer OTHER, SELFPAY | PROVIDERS: PCP Internal Medicine; Visit Provider Psychiatry & Neurology Neurology | DX: G20.A2 Parkinson's disease without dyskinesia, with fluctuations (principal) | CPT/HCPCS: 99212 ==

== ENCOUNTER → 2024-09-26 23:59 | Outpatient (BNV) | payer OTHER, SELFPAY | PROVIDERS: PCP Internal Medicine; Visit Provider Psychiatry & Neurology Neurology | DX: I10 Essential (primary) hypertension (principal) | CPT/HCPCS: G0180 ==

== ENCOUNTER 2024-11-15 14:50 | Outpatient (AMB) | payer OTHER, SELFPAY ==
--- NOTE | 2024-11-15 14:34 | MHC.OFFVIS ---
Intake Visit Reasons: 2mon follow-up Intake Note: Follow up Parkinson's disease with fluctuating manifestations Ammonium Nitrate Neutralizer Required: No Ammonium Nitrate Neutralizer Name: I spoke to pts daughter - Bhakti Allergies atorvastatin (From Lipitor) Allergy (Verified 11/15/24 14:47) Abdominal Pain Medication List - Last Reconciled 11/15/24 by Alissa Downs MD albuterol sulfate 90 mcg/actuation puffs inhalation Q4H azelastine intranasal BID carbidopa-levodopa 25-100 mg ER 2 tab am, 1 tab at noon 2 tabs peg and 1 tab at bedtime chlorthalidone 25 mg PO DAILY finasteride 5 mg PO DAILY linaclotide (Linzess) 72 mcg PO DAILY mirtazapine 15 mg PO BEDTIME omeprazole 20 mg PO DAILY 30 days polyethylene glycol 3350 (Gavilax) grams PO pravastatin 40 mg PO DAILY ropinirole 1 mg PO QID spironolactone 50 mg PO DAILY tamsulosin 0.4 mg PO BEDTIME Do you need a note to return to daycare/school/sports/work: No HPI Comments Details: 84-year-old male calls for follow-up of Parkinson's disease. He does not want to come to appointments in person . he wants to do televisit only..His daughter helps with the appointment. He reports worsening of his symptoms, increased tremors , gait difficulty , freezing episodes.He had 1 fall in the tub. Currently he is on requip 1mg qid and , sinemet CR 25/100 qid. He reports that medications do not help with his symptoms and he still has lot of tremors and difficulty walking . He has dizziness but no falls. He denies any hallucinations or REM behaviors. He denies any diplopia or vertigo. . [facility] Medical History Parkinson's disease with fluctuating manifestations Cataract Parkinson's disease Irritable bowel syndrome Chronic kidney disease Diverticulitis Back pain Arthritis COPD (chronic obstructive pulmonary disease) Hyperlipidemia HTN (hypertension) BPH (benign prostatic hyperplasia) Surgical History Hx of parathyroidectomy History of back surgery Hx of neck surgery History of carpal tunnel release Hx of appendectomy Family History Father Stroke Mother HTN (hypertension) Diabetes Social History Alcohol intake: never Patient Tobacco Use Status: Never used Tobacco Telehealth Telehealth Location of provider rendering services: practice address ([facility]) Location of patient: address on file Patient Identification confirmed using: Name, : Yes Telehealth method: voice only Patient verbally consented to treatment: Yes Patient verbally consented to billing insurance company: Yes Patient informed of any privacy concerns related to visit: Yes Minutes spent on Phone/Video with Pt.: 22 Assessment & Plan Assessment & Plan (1) Parkinson's disease with fluctuating manifestations: Code(s): G20.A2 - Parkinson's disease without dyskinesia, with fluctuations Category: Medical Qualifiers: Dyskinesia presence: without dyskinesia Qualified Code(s): G20.A2 - Parkinson's disease without dyskinesia, with fluctuations Plan ropinirole 1 mg qid and increase sinemet Cr 25/100 2-1-2-1 Increase fluids Increase exercise. Medications: Changed From carbidopa-levodopa 25-100 mg ER 1 tab PO QID 120 tabs 6RF To carbidopa-levodopa 25-100 mg ER 2 tab am, 1 tab at noon 2 tabs peg and 1 tab at bedtime 180 tabs 6RF Coding Level of Care Code Tele Est Pt Level 4 (81319) Diagnoses Parkinson's disease without dyskinesia, with fluctuating manifestations G20.A2 Dyskinesia presence: without dyskinesia Time Spent (min) 22
--- OUTSIDE RECORDS SUMMARY | 2024-11-15 16:15 | XMS_ITS | Clinical Summary ---
Author Organization [facility] Address [address] [place] [address] Phone Care Team Providers Care Network Consultant Name Role Phone Josiane Hooper MD Primary Care Provider [phone] Allergies No known active allergies Medical History Medical History Date Comments Gout Parkinson disease (CMS/[facility] V24, CMS/[facility] V28) Hypertension Social History Tobacco Use [...] 83 03/23/2024 5:06 PM EST Temperature 36.6 C (97.8 F) 03/23/2024 8:17 PM EST Respiratory Rate 18 03/23/2024 8:17 PM EST [...] 02/27/2015 01/02/2015 Cholesterol Screening (Lipid Panel) 03/02/2022 Falls Risk Assessment 03/02/2022 Medicare Annual Wellness Visit 03/02/2022 Social Influencers of Health Screening 03/02/2022 COVID-19 Vaccine (4 - season) 2023 03/11/2021, 05/28/2020, 05/07/2020 Diabetes: Annual Urine Albumin-Creatinine Ratio (uACR) 03/23/2024 Diabetes: Blood Sugar Control Test (HGBA1C) 03/23/2024 08/27/2022 Depression Screening 03/30/2024 Influenza Vaccine (#1) 2024 , 02/08/2022, 03/11/2021, Additional history exists Diabetes: Annual GFR (Glomerular Filtration Rate) 03/23/2025 03/23/2024 Hypertension/CHF/CAD Annual BMP Blood Test 03/23/2025 03/23/2024 DTaP,Tdap,and Td Vaccines (3 - Td or Tdap) 04/16/2026 04/16/2016, 10/08/2007 Pneumococcal Vaccine: 50+ Years Completed 04/16/2016, 05/25/2014, 10/17/2005 HIB Vaccines Aged Out No longer eligi [...] mmol/L LAB CHEMISTRY METHOD 03/23/2024 6:05 PM [facility] Potassium 3.8 3.5 - 5.5 mmol/L LAB CHEMISTRY METHOD 03/23/2024 6:05 PM [facility] Chloride 106 96 - 110 mmol/L LAB CHEMISTRY METHOD 03/23/2024 6:05 PM [facility] CO2 28 21 - 32 mmol/L LAB CHEMISTRY METHOD 03/23/2024 6:05 PM [facility] Anion Gap 5 3 - 11 LAB CHEMISTRY METHOD 03/23/2024 6:05 PM [facility] Glucose 106(H) 70 - 100 mg/dL LAB CHEMISTRY METHOD 03/23/2024 6:05 PM [facility] BUN 22 5 - 25 mg/dL LAB CHEMISTRY METHOD 03/23/2024 6:05 PM [facility] Creatinine 1.73(H) 0.70 - 1.30 mg/dL LAB CHEMISTRY METHOD 03/23/2024 6:05 PM [facility] eGFR 38(L) >=60 mL/min/1. 73m2 LAB CHEMISTRY METHOD 03/23/2024 6:05 PM [facility] Comment:Calculation based on the Chronic Kidney Disease Epidemiology Collaboration (CKD-EPI) equation refit without adjustment for race. BUN/Creatinine Ratio 12.7 LAB CHEMISTRY METHOD 03/23/2024 6:05 PM [facility] Calcium 9.3 8.5 - 10.5 mg/dL LAB CHEMISTRY METHOD 03/23/2024 6:05 PM [facility] AST (SGOT) 35 10 - 42 unit/L LAB CHEMISTRY METHOD 03/23/2024 6:05 PM EST [facility] ALT (SGPT) 24 10 - 60 unit/L LAB CHEMISTRY METHOD 03/23/2024 6:05 PM [facility] Alkaline Phosphatase 95 42 - 121 unit/L LAB CHEMISTRY METHOD 03/23/2024 6:05 PM [facility] Total Protein 7.3 6.0 - 8.0 g/dL LAB CHEMISTRY METHOD 03/23/2024 6:05 PM [facility] Albumin 3.7 3.2 - 5.0 g/dL LAB CHEMISTRY METHOD 03/23/2024 6:05 PM [facility] Total Bilirubin 0.4 0.0 - 1.4 mg/dL LAB CHEMISTRY METHOD 03/23/2024 6:05 PM [facility] Blood Venous blood specimen / Unknown Venipuncture / Unknown 03/23/2024 5:15 PM EST 03/23/2024 5:36 PM EST us Melvin Schmitz MD LAB BLOOD ORDERABLES Katey l Result [facility] [address] [place] [address], from Last 3 Months or Most Recently Relevant to Health Maintenance Insurance [address] [address] [address] MEDICARE Member Subscriber Plan / Payer (Ef fective 2016-Present) Name:Kurt Oreilly Relation to Subscriber:Self Name:Kurt Oreilly Payer ID:[id number] Group ID:[id number] Type:Not on file Address: [place] [address] [place] [id number] Care Teams Network Consultant Relationship Specialty Start Date End Date Josiane Hooper MD [address] [place] [phone] PCP - General Internal Medicine 12/23/16
--- OUTSIDE RECORDS SUMMARY | 2024-11-15 16:15 | XMS_ITS | Clinical Summary ---
Author Organization [facility] Address [address] [facility] [place] [address] Phone Care Team Providers Care Insulation Board Coater Operator Name Role Phone Josiane Hooper MD Primary Care Provider [phone] Allergies Active Allergy Reactions Criticality Noted Date [...] EACH DAY. 90 tablet 3 3 Active D3 50 MCG (1999 UT) tablet Take 2,000 Units by mouth 1 (one) time each day 4 Active spironolactone (ALDACTONE) 50 MG tabletIndicatio ns:Hypertensive disorder TAKE 1 TABLET BY MOUTH 1 TIME EACH DAY. 90 tablet 3 5 Active Active Problems Problem Noted Date Diagnosed [...] colonospcy [facility] mid descending diverticulitis without drainable [...] Encounters Date Type Department Care Team Description 10/23/2024 Orders Only [facility] [address] [facility] [address] [place] [id number] Jenna Gonzales ARNP Stage 3a chronic kidney disease (HCC); Hypertensive disorder; Vitamin D deficiency, not otherwise specified 08/17/2024 Refill [facility] [address] [place] [id number] Jenna Gonzales ARNP Hypertensive disorder from Last 3 Months Immunizations Immunization Administration [...] Mass Index - - Plan of Treatment Health Maintenance Due Date Last Done Comments Diabetes: Ophthalmology Exam 12/12/2021 Diabetes: Pedal Pulse Checked 12/12/2021 Diabetes: Sensory Foot Exam 12/12/2021 Diabetes: Visual Foot Exam 12/12/2021 Diabetes: Hemoglobin A1C 11/27/2022 023, 12/17/2021 Influenza Vaccine (#1) 2024 0, 03/02/2006 Pneumococcal Vaccine: 50+ Years Completed 04/16/2016, 05/25/2014, 10/17/2005 Hepatitis B Vaccine Aged Out No longe r eligible based on patient's age to complete this topic Procedures Procedure Name Priority Date/Time Associated Diagnosis Comments HEMOGLOBIN A1C Routine 08/27/2022 2:02 PM EDT 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 DIAGNOSTIC USE: The [place] Diabetes Association (ADA) and the World Health [...] Supplement 1 Testing performed or reported by [facility] [employer], a Service of [facility], [address] [place] [id number] Jett Levy MD, Mortgage Protection Specialist [facility]# [id number] Blood specimen (specimen) Venous blood / Unknown 08/27/2022 2:02 PM EDT 08/27/2022 2:03 PM EDT us Ian Carrasquillo MD LAB BLOOD ORDERABLES Final Re sult [facility] from Last 3 Months or Most Recently Relevant to Health Maintenance Insurance ([id number]) [place] [id number] [facility] ([id number]) [place] [phone] Care Teams Insulation Board Coater Operator Relationship Specialty Start Date End Date Josiane Hooper MD [address] [place] [address] PCP - General Internal Medicine 08/23/21
--- OUTSIDE RECORDS SUMMARY | 2024-11-15 16:15 | XMS_ITS | Encounter Summary ---
Author Organization [facility] Address [address] [place] [address] Care Team Providers Care Engagement Director Name Role Phone Josiane Hooper Primary Care Provider Unavailabl e Encounter Details Date Type Department Care Team Description 05/22/2017 Release of Information Medical Records [address] [place] [id number] Abstract, Provider Social History Tobacco Use Types Packs/Day Years Used Date Smoking Tobacco: Never Assessed Sex Assigned at Date Recorded Not on file documented as of this encounter Plan of Treatment Not on file documented as of this encounter Visit Diagnoses Not on filedocumented in this encounter Care Teams Engagement Director Relationship Specialty Start Date End Date Josiane Hooper PCP - General Internal Medicine 12/23/16 documented as of this encounter
== END 2024-11-15 15:45 | disposition home or self-care (01) ==
LOC: HO.HSMS 14:51
PROVIDERS: PCP Internal Medicine; Visit Provider Psychiatry & Neurology Neurology
DX: G20.A2 Parkinson's disease without dyskinesia, with fluctuations (principal)
CPT/HCPCS: 99214